=== PATIENT | female | born 1995 | race Caucasian/White ===

== ENCOUNTER → 2017-06-09 12:26 | Outpatient (CLI) | payer OTHER, SELFPAY ==
[2017-06-09 12:34] LABS: Adenovirus,PCR Not Detected (NotDetected); Bordetella Pertussis Not Detected (NotDetected); Chlamydophila Pneumoniae, PCR Not Detected (NotDetected); Coronavirus 229E Not Detected (NotDetected); Coronavirus NL63 Not Detected (NotDetected); Coronavirus OC43 Not Detected (NotDetected); Coronovirus HKU1,PCR Not Detected (NotDetected); Human Metapneumovirus Not Detected (NotDetected); Influenza A, PCR Not Detected (NotDetected); Influenza AH1, 2009 Not Detected (NotDetected); Influenza AH1, PCR Not Detected (NotDetected); Influenza AH3,PCR Not Detected (NotDetected); Influenza B, PCR Not Detected (NotDetected); Mycoplasma Pneumoniae, PCR Not Detected (NotDected); Parainfluenza 1, PCR Not Detected (NotDetected); Parainfluenza 2, PCR Not Detected (NotDetected); Parainfluenza 3, PCR Not Detected (NotDetected); Parainfluenza 4, PCR Not Detected (NotDetected); Rhinovirus/Enterovirus Not Detected (NotDetected)
--- NOTE | 2017-06-09 12:46 | XR_ITS ---
XR chest 2V Ordering Physician: Minna Mejia Patient Age: 21 years: Female HISTORY: ITS.REASON: FEVER,JOINT PAIN TECHNIQUE: PA and lateral chest COMPARISON :2 view chest 05/28/2016 FINDINGS . Lungs well expanded and clear with no significant change the prior study when technique is considered. Mild accentuation markings right infrahilar region similar to previous studies appears reflect vascular markings leading to the RLL. Heart ethan and mediastinal structures are satisfactory. IMPRESSION: Stable chest with nothing definitely acute. If symptoms progress consider follow-up.
[2017-06-09 12:50] LABS: Basophils % 0.2 % (0.1-2.0); Eosinophils # 0.2 K/mm3 (0.0-0.4); Eosinophils % 3.4 % (0.1-12.0); Hematocrit 38.7 % (37.0-47.0); Hemoglobin 12.9 g/dL (12.2-16.2); Lymphocytes # 1.3 K/mm3 (0.7-4.5); Lymphocytes % 25.6 K/mm3 (10-50); Mean Corpuscular HGB Conc 33.3 g/dL (31.8-35.4); Mean Corpuscular Hemoglobin 30.4 pg (27.0-31.2); Mean Corpuscular Volume 91.3 fl (81-99); Mean Platelet Volume 7.4 fl (7.4-10.4); Monocytes # 0.2 K/mm3 (0.1-1.0); Monocytes % 3.1 % (1.7-9.3); Neutrophils # 3.4 K/mm3 (1.8-7.8); Neutrophils % 67.8 % (37.0-80.0); Platelet Count 190 K/mm3 (142-424); Red Blood Count 4.24 M/mm3 (4.20-5.40); Red Cell Distribution Width 12.1 % (11.5-17.5)
[2017-06-09 13:35] LABS: Carbon Dioxide 27 mmol/L (21.0-32.0); Chloride 104 mmol/L (98-107); Sodium 139 mmol/L (136-145)
[2017-06-09 14:01] LABS: Respiratory Syncytial Virus Detected (NotDetected)
[2017-06-09 14:26] LABS: Alanine Aminotransferase 15 U/L (12-78); Albumin Level 4.1 gm/dL (3.4-5.0); Albumin/Globulin Ratio 1.2 (1.1-1.8); Alkaline Phosphatase 58 U/L (46-116); Aspartate Amino Transferase 20 U/L (15-37); Bilirubin,Total 0.3 mg/dL (0.2-1.0); Blood Urea Nitrogen 12 mg/dL (7-18); Calcium 8.4 mg/dL (8.5-10.1); Creatinine,Serum 0.66 mg/dL (0.55-1.02); Estimated Glomerular Filt Rate 111 ml/min (>60); GFR (African American) 134 ML/MIN (>60); Globulin 3.3 gm/dl (1.3-3.2); Glucose 109 mg/dL (74-106); Thyroid Stimulating Hormone 2.03 uIU/ml (0.358-3.740); Total Protein,Serum 7.4 gm/dL (6.4-8.2)
[2017-06-09 14:29] LABS: Erythrocyte Sedimentation Rate 16 mm/hr (0-20)
[2017-06-09 14:33] LABS: C-Reactive Protein < 0.2 mg/L (0.0-0.9)
[2017-06-10 13:37] LABS: RA Latex Turbid. <10.0 IU/mL (0.0-13.9)
== END ==
PROVIDERS: PCP Nurse Practitioner Family; Visit Provider Nurse Practitioner Family
DX: R50.9 Fever, unspecified (principal); M25.50 Pain in unspecified joint
CPT/HCPCS: 36415; 71046; 80053; 84443; 85025; 85651; 86140; 86431; 87486; 87581; 87633; 87798

== ENCOUNTER → 2017-07-15 09:44 | Outpatient (CLI) | payer OTHER, SELFPAY ==
[2017-07-15 10:07] LABS: Basophils % 0.4 % (0.1-2.0); Eosinophils # 0.1 K/mm3 (0.0-0.4); Eosinophils % 2.1 % (0.1-12.0); Hematocrit 39.9 % (37.0-47.0); Hemoglobin 13.2 g/dL (12.2-16.2); Lymphocytes # 1.7 K/mm3 (0.7-4.5); Mean Corpuscular Hemoglobin 30.2 pg (27.0-31.2); Mean Corpuscular Volume 91.4 fl (81-99); Mean Platelet Volume 8.2 fl (7.4-10.4); Monocytes # 0.2 K/mm3 (0.1-1.0); Monocytes % 4.3 % (1.7-9.3); Neutrophils # 2.1 K/mm3 (1.8-7.8); Neutrophils % 51.2 % (37.0-80.0); Platelet Count 171 K/mm3 (142-424); Red Blood Count 4.36 M/mm3 (4.20-5.40); Red Cell Distribution Width 12.7 % (11.5-17.5); White Blood Count 4.1 K/mm3 (4.8-10.8)
[2017-07-15 10:37] LABS: Alanine Aminotransferase 35 U/L (12-78); Albumin Level 4.2 gm/dL (3.4-5.0); Albumin/Globulin Ratio 1.1 (1.1-1.8); Alkaline Phosphatase 60 U/L (46-116); Anion Gap 12.9 mEq/L (5-15); Aspartate Amino Transferase 20 U/L (15-37); Bilirubin,Total 0.6 mg/dL (0.2-1.0); Blood Urea Nitrogen 12 mg/dL (7-18); Calcium 8.7 mg/dL (8.5-10.1); Carbon Dioxide 28 mmol/L (21.0-32.0); Chloride 103 mmol/L (98-107); Creatinine,Serum 0.66 mg/dL (0.55-1.02); Estimated Glomerular Filt Rate 110 ml/min (>60); GFR (African American) 133 ML/MIN (>60); Globulin 3.8 gm/dl (1.3-3.2); Glucose 89 mg/dL (74-106); Potassium 3.9 mmoL/L (3.5-5.1); Sodium 140 mmol/L (136-145); T4 (Thyroxine) 9.1 ug/dl (4.7-13.3); Thyroid Stimulating Hormone 3.23 uIU/ml (0.358-3.740)
[2017-07-15 10:41] LABS: C-Reactive Protein < 0.2 mg/L (0.0-0.9)
[2017-07-15 11:18] LABS: Erythrocyte Sedimentation Rate 14 mm/hr (0-20)
[2017-07-16 05:18] LABS: Triiodothyronine (T3) Total 186 ng/dL (71-180)
[2017-07-16 13:22] LABS: Complement C3 87 mg/dL (82-167); Thyroglobulin Level <1.0 IU/mL (0.0-0.9); Thyroid Peroxidase Antibodies 14 IU/mL (0-34)
[2017-07-17 11:52] LABS: Actin (Smooth Muscle) Antibody 10 Units (0-19); Anti-DNA (DS) Ab Qn 1 IU/mL (0-9); Antinuclear Antibodies, IFA Negative (.)
== END ==
PROVIDERS: Visit Provider Nurse Practitioner Family
DX: R50.9 Fever, unspecified (principal); R53.83 Other fatigue; R21 Rash and other nonspecific skin eruption; R53.81 Other malaise
CPT/HCPCS: 36415; 80053; 84436; 84443; 84480; 85025; 85651; 86038; 86140; 86161; 86225; 86255; 86376; 86800

== ENCOUNTER → 2017-07-24 09:45 | Outpatient (CLI) | payer OTHER, SELFPAY ==
[2017-07-25 09:16] LABS: Hep A Ab, IgM Negative (Negative); Hepatitis B Core Antibody IgM Negative (Negative); Hepatitis B Surface Antigen Negative (Negative)
[2017-07-25 19:24] LABS: HIV Screen 4th Generation wRfx Non Reactive (Non Reactive); Hepatitis C Antibody >11.0 s/co ratio (0.0-0.9)
== END ==
PROVIDERS: Visit Provider Nurse Practitioner Family
DX: R53.83 Other fatigue (principal); R63.4 Abnormal weight loss; Z87.898 Personal history of other specified conditions; Z72.51 High risk heterosexual behavior
CPT/HCPCS: 36415; 80074; 86703; G0432

== ENCOUNTER → 2017-08-25 12:35 | Outpatient (CLI) | payer OTHER, SELFPAY ==
--- NOTE | 2017-08-25 12:52 | XR_ITS ---
XR KUB CLINICAL INDICATION: Right flank pain ITS.REASON: KUB ORDERING PHYSICIAN: Minna Mejia PATIENT AGE: 22 years COMPARISON: None FINDINGS: Nonspecific nonobstructive bowel gas pattern. No obvious renal or ureteral calculi. No acute bony anomalies. IMPRESSION: Negative KUB
[2017-08-25 14:43] LABS: Alanine Aminotransferase 22 U/L (12-78); Albumin Level 4.3 gm/dL (3.4-5.0); Albumin/Globulin Ratio 1.2 (1.1-1.8); Alkaline Phosphatase 56 U/L (46-116); Aspartate Amino Transferase 21 U/L (15-37); Bilirubin,Total 0.2 mg/dL (0.2-1.0); Blood Urea Nitrogen 16 mg/dL (7-18); Calcium 9.3 mg/dL (8.5-10.1); Carbon Dioxide 26 mmol/L (21.0-32.0); Chloride 104 mmol/L (98-107); Creatinine,Serum 0.61 mg/dL (0.55-1.02); Estimated Glomerular Filt Rate 121 ml/min (>60); GFR (African American) 146 ML/MIN (>60); Globulin 3.6 gm/dl (1.3-3.2); Glucose 72 mg/dL (74-106); Sodium 140 mmol/L (136-145); Total Protein,Serum 7.9 gm/dL (6.4-8.2)
[2017-08-28 15:49] LABS: Parathyroid Hormone Intact 20 pg/mL (15-65)
== END ==
PROVIDERS: PCP Nurse Practitioner Family; Visit Provider Nurse Practitioner Family
DX: R10.9 Unspecified abdominal pain (principal); R53.83 Other fatigue
CPT/HCPCS: 36415; 74018; 80053; 82533; 83970

== ENCOUNTER → 2018-03-05 17:39 | Outpatient (CLI) | payer OTHER, SELFPAY ==
[2018-03-05 17:44] LABS: Adenovirus,PCR Not Detected (NotDetected); Bordetella Pertussis Not Detected (NotDetected); Chlamydophila Pneumoniae, PCR Not Detected (NotDetected); Coronavirus 229E Not Detected (NotDetected); Coronavirus NL63 Not Detected (NotDetected); Coronavirus OC43 Not Detected (NotDetected); Coronovirus HKU1,PCR Not Detected (NotDetected); Human Metapneumovirus Not Detected (NotDetected); Influenza A, PCR Not Detected (NotDetected); Influenza AH1, 2009 Not Detected (NotDetected); Influenza AH1, PCR Not Detected (NotDetected); Influenza AH3,PCR Not Detected (NotDetected); Influenza B, PCR Not Detected (NotDetected); Mycoplasma Pneumoniae, PCR Not Detected (NotDected); Parainfluenza 1, PCR Not Detected (NotDetected); Parainfluenza 2, PCR Not Detected (NotDetected); Parainfluenza 3, PCR Not Detected (NotDetected); Parainfluenza 4, PCR Not Detected (NotDetected); Respiratory Syncytial Virus Not Detected (NotDetected); Rhinovirus/Enterovirus Not Detected (NotDetected)
--- NOTE | 2018-03-05 18:05 | XR_ITS ---
XR chest 2V HISTORY: ITS.REASON: COUGH, WHEEZING ORDERING PHYSICIAN: Becka Amaya PATIENT AGE: 22 years COMPARISON: None FINDINGS: The cardiomediastinal silhouette and pulmonary vascularity are within normal limits. The lungs are clear without infiltrates, suspicious nodules, or pleural effusions. No acute bony abnormalities. IMPRESSION: Negative chest, no acute finding
[2018-03-05 18:08] LABS: Basophils % 0.4 % (0.1-2.0); Eosinophils # 0.2 K/mm3 (0.0-0.4); Eosinophils % 3.3 % (0.1-12.0); Hematocrit 31.1 % (37.0-47.0); Hemoglobin 10.7 g/dL (12.2-16.2); Lymphocytes % 30.7 K/mm3 (10-50); Mean Corpuscular HGB Conc 34.5 g/dL (31.8-35.4); Mean Corpuscular Hemoglobin 30.5 pg (27.0-31.2); Mean Corpuscular Volume 88.1 fl (81-99); Mean Platelet Volume 7.4 fl (7.4-10.4); Monocytes # 0.2 K/mm3 (0.1-1.0); Monocytes % 3.6 % (1.7-9.3); Platelet Count 267 K/mm3 (142-424); Red Blood Count 3.53 M/mm3 (4.20-5.40); Red Cell Distribution Width 12.9 % (11.5-17.5); White Blood Count 6.4 K/mm3 (4.8-10.8)
[2018-03-05 18:36] LABS: Anion Gap 14.5 mEq/L (5-15); Blood Urea Nitrogen 11 mg/dL (7-18); Calcium 9.4 mg/dL (8.5-10.1); Carbon Dioxide 28 mmol/L (21.0-32.0); Chloride 98 mmol/L (98-107); Creatinine,Serum 0.45 mg/dL (0.55-1.02); Estimated Glomerular Filt Rate 171 ml/min (>60); GFR (African American) 207 ML/MIN (>60); Glucose 79 mg/dL (74-106); Potassium 3.5 mmoL/L (3.5-5.1); Sodium 137 mmol/L (136-145)
== END ==
PROVIDERS: PCP Nurse Practitioner Family; Visit Provider Physician Assistant
DX: R50.9 Fever, unspecified (principal); R06.2 Wheezing; R05 Cough; Z34.90 Encounter for supervision of normal pregnancy, unspecified, unspecified trimester
CPT/HCPCS: 36415; 71046; 80048; 85025; 87486; 87581; 87633; 87798

== ENCOUNTER → 2018-04-16 08:50 | Outpatient (CLI) | payer OTHER, SELFPAY ==
[2018-04-16 08:54] LABS: Adenovirus,PCR Not Detected (NotDetected); Bordetella Pertussis Not Detected (NotDetected); Chlamydophila Pneumoniae, PCR Not Detected (NotDetected); Coronavirus 229E Not Detected (NotDetected); Coronavirus NL63 Not Detected (NotDetected); Coronavirus OC43 Not Detected (NotDetected); Coronovirus HKU1,PCR Not Detected (NotDetected); Human Metapneumovirus Not Detected (NotDetected); Influenza A, PCR Not Detected (NotDetected); Influenza AH1, 2009 Not Detected (NotDetected); Influenza AH1, PCR Not Detected (NotDetected); Influenza AH3,PCR Not Detected (NotDetected); Influenza B, PCR Not Detected (NotDetected); Mycoplasma Pneumoniae, PCR Not Detected (NotDetected); Parainfluenza 1, PCR Not Detected (NotDetected); Parainfluenza 2, PCR Not Detected (NotDetected); Parainfluenza 3, PCR Not Detected (NotDetected); Parainfluenza 4, PCR Not Detected (NotDetected); Respiratory Syncytial Virus Not Detected (NotDetected); Rhinovirus/Enterovirus Not Detected (NotDetected)
== END ==
PROVIDERS: PCP Nurse Practitioner Family; Visit Provider Nurse Practitioner Family
DX: R05 Cough (principal); R53.83 Other fatigue
CPT/HCPCS: 87486; 87581; 87633; 87798

== ENCOUNTER 2020-01-14 16:45 | Emergency (ER) | payer MEDICAID, SELFPAY ==
--- NOTE | 2020-01-14 16:38 | ECG_ITS ---
APPROVED REPORT Exam: Resting ECG HR:72 bpm ECG Measurements Heart Rate 72 AXES MS 126 P 51 QRSd 72 QRS 75 QT 412 T 40 QTc 451 <Conclusion> Normal sinus rhythm Incomplete RBBB Otherwise a Normal ECG Electronically signed by : Gurvinder Hinson, 01/16/2020 20:02:28
[2020-01-14 16:48] VITALS: BP 124/72; PULSE 84; RESP 17; TEMP 37.3; O2SAT 99; BMI 19.5
--- NOTE | 2020-01-14 16:54 | XR_ITS ---
PROCEDURE: XR CHEST PORTABLE CLINICAL HISTORY: cough COMPARISON: CR CXR CHEST(2 VIEWS-NOT PORTABLE) from 05/28/2016 CR CXR2V XR chest 2V from 06/09/2017 CR CXR2V XR chest 2V from 03/05/2018 FINDINGS: The cardiomediastinal silhouette and pulmonary vascularity are within normal limits. The lungs are clear without infiltrates, suspicious nodules, or pleural effusions. Calcified granuloma midlung No acute bony abnormalities. IMPRESSION: No acute findings. Dictated by: Félix Martin MD 01/14/2020 22:07 Félix Martin MD in [place] 01/14/2020 22:07
--- NOTE | 2020-01-14 17:07 | HMH.EDGENADL ---
ED Disposition Clinical Impression: Suspected COVID-19 virus infection Disposition: Home, Self-Care Condition on Discharge: Fair Additional Instructions: You have been evaluated for cough, congestion, sore throat. Please take Tylenol for pain and fever. Self isolate and quarantine. You will be called with any positive COVID results. Return to the emergency department if you have new or worsening chest pain, vomiting, shortness of breath, other concerns. Referrals: Provider,Referral, [Primary Care Provider] - Time of Disposition: 18:06 - Critical Care Critical Care Time: No Attestation: On 01/14/20, the high probability of a clinically significant, sudden or life threatening deterioration of the following system(s) required my full and direct attention, intervention and personal management. The time I documented below is in addition to time spent performing reported procedures but includes the following listed in this critical care notation. Medical Decision Making - Medical Records Medical records reviewed: Yes: I reviewed the patient's medical records. - Moncho Inquiry Pt receiving controlled substance: No Vital Signs: 01/14/20 16:48 01/14/20 17:42 01/14/20 18:02 Temperature 99.1 F 99.0 F Temperature Source Oral Oral Pulse Rate 95 H Pulse Rate [Right Radial] 84 64 Respiratory Rate 17 17 Blood Pressure 120/84 Blood Pressure [Right Arm] 124/72 122/77 Blood Pressure Mean [Right Arm] 89 92 Blood Pressure Source [Right Arm] Automatic Cuff Blood Pressure Position [Right Arm] Sitting 02 Sat by Pulse Oximetry 99 100 Oxygen Delivery Method Room Air Room Air Room Air Orders (Tests/Meds): ORDERS Category Date Time Status CXR --portable [XR chest portable] Stat Exams 01/14/20 16:54 Taken Covid-19 Nasal PCR Sendout Stat Lab 01/14/20 17:10 Received Medical Decision Narrative: In summary this is a 24-year-old female presenting to the emergency department with cough, congestion, sore throat, body aches. Overall presentation is most concerning for COVID-19 or other viral illness. Will obtain chest x-ray to assess for pneumonia. X-ray unremarkable. Patient counseled to take Tylenol for her symptoms. She should self quarantine. Given return precautions for new or worsening symptoms like difficulty breathing, chest pain, other concerns. General Adult HPI - General Chief complaint: Fever Stated complaint: Cp, SOB Time Seen by Provider: 01/14/20 17:00 Mode of Arrival: Ambulatory Limitations: No Limitations Description of Symptoms (Recalled from ER Triage Doc. by RN): pt states that 2 days ago she started having sore throat and now she has a cough, fever up to 102 at home, vomiting and body aches. - History of Present Illness HPI narrative: 24-year-old female presenting to the emergency department with cough, myalgias. Symptoms started yesterday as a cough that was dry and hacking. Overnight she developed diffuse myalgias in her arms, legs. She also had nausea, no vomiting. She now has a sore throat that is on both sides of the back of her throat. Pain with swallowing. No difficulty breathing. She does not have any medical problems. No known sick contacts or positive COVID exposures. She does clean houses. Is taking Tylenol for fever. - Related Data Home Medications Medication Instructions Recorded Confirmed Buprenorphine HCl/Naloxone HCl 1 each SL BID 08/25/17 04/01/18 [Suboxone 8 mg-2 mg Sl Film] No122/Iron/Folic Acid 1 each PO DAILY 04/01/18 04/01/18 [ Multi Tablet] Previous Rx's Medication Instructions Recorded bisacodyL [Dulcolax 5mg Tab] 5 mg PO PCHS PRN #6 tablet. 02/12/18 Allergies Allergy/AdvReac Type Severity Reaction Status Date / Time codeine [CODEINE] Allergy Severe Anaphylaxis Verified 04/01/18 17:46 doxycycline [DOXYCYCLINE] Allergy Severe Anaphylaxis Verified 04/01/18 17:46 hyoscyamine [From Levsin] Allergy S
[2020-01-14 17:42] VITALS: BP 122/77; PULSE 64; O2SAT 100
[2020-01-14 18:02] VITALS: BP 120/84; PULSE 95; RESP 17; TEMP 37.2; O2SAT 99
[2020-01-16 17:19] LABS: Covid-19 Nasal PCR Sendout UK Not Detected
== END 2020-01-14 18:02 | disposition home or self-care (01) ==
PROVIDERS: Emergency Provider Emergency Medicine
DX: Z20.828 Contact with and (suspected) exposure to other viral communicable diseases (principal); R50.9 Fever, unspecified; F17.210 Nicotine dependence, cigarettes, uncomplicated
CPT/HCPCS: 71045; 93005; 99283; U0003

== ENCOUNTER 2023-08-27 14:42 | Emergency (ER) | payer MEDICAID, SELFPAY ==
[2023-08-27] VITALS (10 sets, daily range): BP systolic 97–145; BP diastolic 69–95; PULSE 68–95; RESP 14–20; TEMP 36.6–37.1; O2SAT 98–100; BMI 21.2
--- NOTE | 2023-08-27 14:44 | ED_ITS ---
Discharge Plan Disposition Patient Disposition: Home, Self-Care Prescriptions Prescriptions: New nitrofurantoin monohyd/m-cryst [Macrobid] 100 mg capsule 100 mg PO BID 5 Days Qty: 10 0RF Rx Instructions: must administer with a meal/food No Action bisacodyl 5 MG tablet,delayed release (DR/EC) 5 mg PO PCHS PRN (Reason: Constipation) Qty: 6 0RF [id number] [ Multi] 1 EACH tablet 1 ea PO DAILY buprenorphine-naloxone [Suboxone] 1 EACH film 1 ea sublingual BID Referrals Follow up/Referrals: Lisa Mckeon DO [Staff Physician] - See instructions Provider,Referral, [Primary Care Provider] - See instructions Activity Restrictions/Add. Instructions Additional Instructions/Restrictions: At this time it was felt you are safe to be discharged home. If new or worsening symptoms please do not hesitate to return the emergency department. Please call and schedule an appointment with Dr. Mckeon as soon as you are able. Below is your submission to [facility], they should contact you for an appointment. Please refrain from substance abuse. Thank You! Your submission has been received! The patient will receive a call from [phone] Patient Name: Lisa Lamar Patient Location: [place], [place] ([address] [place] [address]) Clinical Impressions Clinical Impression: Seizure-like activity, Vaginal bleeding, Substance abuse, Asthma exacerbation, Asymptomatic bacteriuria Discharge ED Provider: Derik Choi General Adult HPI <MARIBELL Nicolas - Last Filed: 08/27/23 17:03> General Chief complaint: Vaginal Bleeding Stated complaint: 18 wks antepartum, overdose Time Seen by Provider: 08/27/23 14:44 History of Present Illness HPI narrative: Patient presents for evaluation of overdose and reported seizure. Patient states that she has a lifelong subs abuse problem with amphetamine however reports being sober until December and has since started abusing cocaine last week. Patient smoked methamphetamine and cocaine today at which point she reportedly had a seizure according to the bystanders that were with her. However none of those bystanders are currently present. Patient is amnestic of the events but when she awoke she took Narcan. Patient reports that the back of her head hurts but she feels sore but no other complaints including chest pain shortness of breath fever chills hemoptysis hematochezia melena nausea vomit diarrhea. Patient does endorse approximately an hour prior to presentation she started spotting along with some mucus discharge vaginally. She is having some abdominal cramping. Patient is Ab1 Related Data Home Medications Medication Instructions Recorded Confirmed buprenorphine 8 mg-naloxone 2 mg 1 ea sublingual BID PAIN 08/25/17 04/01/18 sublingual film (Suboxone) vit 122-ferrous fumarate 1 ea PO DAILY Supplement 04/01/18 04/01/18 27 mg iron-folic acid 800 mcg tablet ( Multi) Previous Rx's Medication Instructions Recorded bisacodyl 5 mg tablet,delayed 5 mg PO HS PRN Constipation ##6 02/12/18 release nitrofurantoin 100 mg PO BID 5 days #10 caps 08/27/23 monohydrate/macrocrystals 100 mg capsule (Macrobid) Allergies Allergy/AdvReac Type Severity Reaction Status Date / Time codeine [CODEINE] Allergy Severe Anaphylaxis Verified 04/01/18 17:46 doxycycline [DOXYCYCLINE] Allergy Severe Anaphylaxis Verified 04/01/18 17:46 hyoscyamine [From Levsin] Allergy Severe Joint Pain Verified 04/01/18 17:46 penicillin G [PENICILLIN G] Allergy Severe Anaphylaxis Verified 04/01/18 17:46 aspirin [ASPIRIN] Allergy Mild Rash Verified 04/01/18 17:46 <Derik Choi MD - Last Filed: 08/27/23 19:42> History of Present Illness HPI narrative: Patient presents for evaluation of overdose and reported seizure. Patient states that she has a lifelong subs abuse problem with amphetamine however reports being sober since December. Patient relapsed and smoked methamphetamine and cocaine today at which point she reportedly had a seizure according to the bystanders that were with her. However none of those bystanders are currently present. Patient is amnestic of the events but when she awoke she took Narcan. Patient reports that the back of her head hurts but she feels sore but no other complaints including chest pain shortness of breath fever chills hemoptysis hematochezia melena nausea vomit diarrhea. Patient does endorse approximately an hour prior to presentation she started spotting along with some mucus discharge vaginally. She is having some abdominal cramping. Jany Choi: Patient is a G4, P2 EGA 17.5 weeks, no previous section. Has polysubstance abuse and presents here for seizure-like activity. Patient has previous documented IUP on ultrasound in fax chart from [facility]. [facility] <MARIBELL Nicolas - Last Filed: 08/27/23 17:03> [facility] Disclaimer: The information contained in this section may have been updated after the patient was seen, as this information can be updated by other users. Social History Smoking Status: Current every day smoker tobacco type: cigarettes packs per day: 1 second hand exposure: Yes alcohol intake: never substance use type: marijuana, opiates and IV drugs current occupational status: employed Travel in the last 8 weeks: None caffeine: Yes <MARIBELL Nicolas - Last Filed: 08/27/23 17:03> ROS Obtained: Yes Systems reviewed as appropriate & no additional complaints except as documented Physical Exam <MARIBELL Nicolas - Last Filed: 08/27/23 17:03> General General appearance: alert and in no apparent distress Head Head exam: atraumatic, normocephalic, normal inspection and other (Patient is tender to palpation at the occiput but no deformities hematomas lacerations abrasions noted) Eye Eye exam: Present normal appearance, PERRL and EOMI; Absent nystagmus ENT ENT exam: Present normal exam, normal oropharynx and mucous membranes moist Neck Neck exam: Present normal inspection, full ROM and trachea midline; Absent lymphadenopathy Chest Chest inspection: Present normal inspection and symmetric chest wall rise Respiratory Respiratory exam: Present normal lung sounds bilaterally; Absent respiratory distress or accessory muscle use Cardiovascular Cardiovascular exam: Present regular rate, normal rhythm, normal heart sounds, +S1 and +S2 Abdominal Exam Abdominal exam: Present soft, tenderness (In the bilateral lower quadrants primarily towards the midline) and normal bowel sounds; Absent guarding, rebound or rigidity Extremities Exam Extremities exam: Present normal inspection and full ROM; Absent tenderness Back Exam Back exam: Present normal inspection and full ROM Neurological Exam Neurological exam: Present alert, oriented X3 and CN II-XII intact Psychiatric Psychiatric exam: Present normal affect and normal mood Skin Skin exam: Present warm, dry and normal color Medical Decision Making <MARIBELL Nicolas - Last Filed: 08/27/23 17:03> Medical Records Medical records reviewed: Yes I reviewed the patient's medical records. Moncho Inquiry Pt receiving controlled substance: No Vital Signs: 08/27/23 14:44 08/27/23 15:11 08/27/23 15:15 Temperature 98 F Temperature Source Oral Pulse Rate 88 95 H Pulse Rate [Left Radial] 91 H Respiratory Rate 16 18 20 Blood Pressure 97/70 L Blood Pressure [Right Arm] 138/88 Blood Pressure Mean [Right Arm] 104 Blood Pressure Source [Right Arm] Automatic Cuff Blood Pressure Position [Right Arm] Sitting 02 Sat by Pulse Oximetry 99 98 98 Oxygen Delivery Method Room Air Room Air 08/27/23 16:00 08/27/23 16:30 08/27/23 17:00 Temperature Temperature Source Pulse Rate 86 86 68 Pulse Rate [Left Radial] Respiratory Rate 16 16 15 Blood Pressure 116/69 115/74 126/78 Blood Pressure [Right Arm] Blood Pressure Mean [Right Arm] Blood Pressure Source [Right Arm] Blood Pressure Position [Right Arm] 02 Sat by Pulse Oximetry 100 98 98 Oxygen Delivery Method Room Air 08/27/23 17:30 08/27/23 18:00 08/27/23 18:30 Temperature Temperature Source Pulse Rate 81 69 80 Pulse Rate [Left Radial] Respiratory Rate 16 14 16 Blood Pressure 116/74 114/77 130/73 Blood Pressure [Right Arm] Blood Pressure Mean [Right Arm] Blood Pressure Source [Right Arm] Blood Pressure Position [Right Arm] 02 Sat by Pulse Oximetry 99 99 98 Oxygen Delivery Method Room Air Room Air Lab Data Lab results reviewed: Yes I reviewed the patient's lab results. Lab Results 08/27/23 15:07: WBC 7.7, RBC 4.02 L, Hgb 12.7, Hct 38.8, MCV 96.6, MCH 31.7 H, MCHC 32.8, RDW 13.0, Plt Count 303, MPV 7.4, Neut % (Auto) 83.8 H, Lymph % (Auto) 12.2, Letcher % (Auto) 2.9, Eos % (Auto) 0.8, Baso % (Auto) 0.3, Neut # (Auto) 6.5, Lymph # (Auto) 0.9, Letcher # (Auto) 0.2, Eos # (Auto) 0.1, Baso # (Auto) 0.0, Sodium 134 L, Potassium 3.4 L, Chloride 105, Carbon Dioxide 23, Anion Gap 9.4, BUN 6 L, Creatinine 0.40 L, Estimated Creat Clear 177, Estimated GFR 187, Est GFR ( Amer) 227, Glucose 108 H, Calcium 9.2, Magnesium 2.0, Total Bilirubin 0.5, AST 30, ALT 23, Alkaline Phosphatase 72, Total Protein 7.5, Albumin 4.1, Globulin 3.4 H, Albumin/Globulin Ratio 1.2, TSH 1.75, Thyroxine (T4) 15.8 H 08/27/23 15:20: Blood Type A Positive, Antibody Screen Negative 08/27/23 15:57: Lactate 0.7 08/27/23 16:19: Urine Color Yellow, Urine Appearance Clear, Urine pH 6.0, Ur Specific [place] <= 1.005, Urine Protein Negative, Urine Glucose (UA) Negative, Urine Ketones Negative, Urine Blood Trace-i, Urine Nitrate Negative, Urine Bilirubin Negative, Urine Urobilinogen 0.2, Ur Leukocyte Esterase Trace, Urine RBC Occasional, Urine WBC 3-5, Ur Squamous Epith Cells 5-10, Urine Bacteria Trace, SARS-CoV-2 (PCR) Not detected, Influenza A Untype (PCR) Not detected, Influenza Type B (PCR) Not detected 08/27/23 15:07 08/27/23 15:07 Orders (Tests/Meds): ED MEDICATIONS Discontinued Medications Generic Name Dose Route Start Last Admin Trade Name Juanq PRN Reason Stop Dose Admin Acetaminophen 1,000 mg 08/27/23 15:04 08/27/23 15:16 Acetaminophen 500mg Tab PO 08/27/23 15:05 1,000 mg ONCE ONE Administration Albuterol Sulfate 2.5 mg 08/27/23 18:57 08/27/23 19:22 Albuterol 0.083% 2.5 Mg/3 Ml Neb IH 08/27/23 18:58 2.5 mg ONCE ONE Administration Dexamethasone Sodium Phosphate 10 mg 08/27/23 18:57 08/27/23 19:18 Dexamethasone 4mg/Ml 1ml Vial IV 08/27/23 18:58 10 mg ONCE ONE Administration Lactated Ringer's 1,000 mls @ 999 mls/hr 08/27/23 16:14 08/27/23 16:16 Lactated Ringer's 1000 Ml Bag IV 08/27/23 17:14 999 mls/hr .Q1H1M ONE Administration ORDERS Category Date Time Status Type and Screen Stat BBK 08/27/23 15:[address] head/brain wo con Stat Cat Scan 08/27/23 15:03 Completed CXR --portable [XR chest portable] Stat Exams 08/27/23 18:57 Completed CBC w/Auto Diff [Complete Blood Count Auto Diff] Stat Lab 08/27/23 15:07 Completed CMP [Comprehensive Metabolic Panel] Stat Lab 08/27/23 15:07 Completed Lactic Acid Stat Lab 08/27/23 15:57 Completed Magnesium Stat Lab 08/27/23 15:07 Completed Rapid PCR Covid and Flu A/B Stat Lab 08/27/23 16:19 Completed T4 (Thyroxine) Stat Lab 08/27/23 15:07 Completed TSH [Thyroid Stimulating Hormone] Stat Lab 08/27/23 15:07 Completed Urinalysis and Microscopic Stat Lab 08/27/23 16:19 Completed Medical Decision Narrative: In summary patient is a 28-year-old female who presents to the emergency department for evaluation of unintentional drug overdose and seizure. Patient is currently hemodynamically stable upon arrival, and afebrile. Physical exam is only remarkable for generalized muscle soreness and tenderness at the occiput without visible trauma or deformity on palpation. Patient's Glascow coma score is 15. Differential diagnosis includes intracranial bleed, drug-induced seizure, threatened miscarriage, occult fracture etc. Initial workup will be conducted with hematologic labs, type and screen, CT scan of the head without contrast, urinalysis and urine drug screen. Initial interventions include Tylenol, fluid bolus. Initial workup reviewed by me shows that her hematologic labs are unremarkable and nonactionable and CT scan of the head does not show any acute processes.. <Derik Choi MD - Last Filed: 08/27/23 19:42> Vital Signs: 08/27/23 14:44 08/27/23 15:11 08/27/23 15:15 Temperature 98 F Temperature Source Oral Pulse Rate 88 95 H Pulse Rate [Left Radial] 91 H Respiratory Rate 16 18 20 Blood Pressure 97/70 L Blood Pressure [Right Arm] 138/88 Blood Pressure Mean [Right Arm] 104 Blood Pressure Source [Right Arm] Automatic Cuff Blood Pressure Position [Right Arm] Sitting 02 Sat by Pulse Oximetry 99 98 98 Oxygen Delivery Method Room Air Room Air 08/27/23 16:00 08/27/23 16:30 08/27/23 17:00 Temperature Temperature Source Pulse Rate 86 86 68 Pulse Rate [Left Radial] Respiratory Rate 16 16 15 Blood Pressure 116/69 115/74 126/78 Blood Pressure [Right Arm] Blood Pressure Mean [Right Arm] Blood Pressure Source [Right Arm] Blood Pressure Position [Right Arm] 02 Sat by Pulse Oximetry 100 98 98 Oxygen Delivery Method Room Air 08/27/23 17:30 08/27/23 18:00 08/27/23 18:30 Temperature Temperature Source Pulse Rate 81 69 80 Pulse Rate [Left Radial] Respiratory Rate 16 14 16 Blood Pressure 116/74 114/77 130/73 Blood Pressure [Right Arm] Blood Pressure Mean [Right Arm] Blood Pressure Source [Right Arm] Blood Pressure Position [Right Arm] 02 Sat by Pulse Oximetry 99 99 98 Oxygen Delivery Method Room Air Room Air Lab Data Lab Results 08/27/23 15:07: WBC 7.7, RBC 4.02 L, Hgb 12.7, Hct 38.8, MCV 96.6, MCH 31.7 H, MCHC 32.8, RDW 13.0, Plt Count 303, MPV 7.4, Neut % (Auto) 83.8 H, Lymph % (Auto) 12.2, Letcher % (Auto) 2.9, Eos % (Auto) 0.8, Baso % (Auto) 0.3, Neut # (Auto) 6.5, Lymph # (Auto) 0.9, [place]cher # (Auto) 0.2, Eos # (Auto) 0.1, Baso # (Auto) 0.0, Sodium 134 L, Potassium 3.4 L, Chloride 105, Carbon Dioxide 23, Anion Gap 9.4, BUN 6 L, Creatinine 0.40 L, Estimated Creat Clear 177, Estimated GFR 187, Est GFR ( Amer) 227, Glucose 108 H, Calcium 9.2, Magnesium 2.0, Total Bilirubin 0.5, AST 30, ALT 23, Alkaline Phosphatase 72, Total Protein 7.5, Albumin 4.1, Globulin 3.4 H, Albumin/Globulin Ratio 1.2, TSH 1.75, Thyroxine (T4) 15.8 H 08/27/23 15:20: Blood Type A Positive, Antibody Screen Negative 08/27/23 15:57: Lactate 0.7 08/27/23 16:19: Urine Color Yellow, Urine Appearance Clear, Urine pH 6.0, Ur Specific [place] <= 1.005, Urine Protein Negative, Urine Glucose (UA) Negative, Urine Ketones Negative, Urine Blood Trace-i, Urine Nitrate Negative, Urine Bilirubin Negative, Urine Urobilinogen 0.2, Ur Leukocyte Esterase Trace, Urine RBC Occasional, Urine WBC 3-5, Ur Squamous Epith Cells 5-10, Urine Bacteria Trace, SARS-CoV-2 (PCR) Not detected, Influenza A Untype (PCR) Not detected, Influenza Type B (PCR) Not detected Orders (Tests/Meds): ED MEDICATIONS Discontinued Medications Generic Name Dose Route Start Last Admin Trade Name Freq PRN Reason Stop Dose Admin Acetaminophen 1,000 mg 08/27/23 15:04 08/27/23 15:16 Acetaminophen 500mg Tab PO 08/27/23 15:05 1,000 mg ONCE ONE Administration Albuterol Sulfate 2.5 mg 08/27/23 18:57 08/27/23 19:22 Albuterol 0.083% 2.5 Mg/3 Ml Neb IH 08/27/23 18:58 2.5 mg ONCE ONE Administration Dexamethasone Sodium Phosphate 10 mg 08/27/23 18:57 08/27/23 19:18 Dexamethasone 4mg/Ml 1ml Vial IV 08/27/23 18:58 10 mg ONCE ONE Administration Lactated Ringer's 1,000 mls @ 999 mls/hr 08/27/23 16:14 08/27/23 16:16 Lactated Ringer's 1000 Ml Bag IV 08/27/23 17:14 999 mls/hr .Q1H1M ONE Administration ORDERS Category Date Time Status Type and Screen Stat BBK 08/27/23 15:[address] head/brain wo con Stat Cat Scan 08/27/23 15:03 Completed CXR --portable [XR chest portable] Stat Exams 08/27/23 18:57 Completed CBC w/Auto Diff [Complete Blood Count Auto Diff] Stat Lab 08/27/23 15:07 Completed CMP [Comprehensive Metabolic Panel] Stat Lab 08/27/23 15:07 Completed Lactic Acid Stat Lab 08/27/23 15:57 Completed Magnesium Stat Lab 08/27/23 15:07 Completed Rapid PCR Covid and Flu A/B Stat Lab 08/27/23 16:19 Completed T4 (Thyroxine) Stat Lab 08/27/23 15:07 Completed TSH [Thyroid Stimulating Hormone] Stat Lab 08/27/23 15:07 Completed Urinalysis and Microscopic Stat Lab 08/27/23 16:19 Completed Medical Decision Narrative: In summary patient is a 28-year-old female who presents to the emergency department for evaluation of unintentional drug overdose and seizure. Patient is currently hemodynamically stable upon arrival, and afebrile. Physical exam is only remarkable for generalized muscle soreness and tenderness at the occiput without visible trauma or deformity on palpation. Patient's Glascow coma score is 15. Differential diagnosis includes intracranial bleed, drug-induced seizure, threatened miscarriage, occult fracture etc. Initial workup will be conducted with hematologic labs, type and screen, CT scan of the head without contrast, urinalysis and urine drug screen. Initial interventions include Tylenol, fluid bolus. Initial workup reviewed by me shows that her hematologic labs are unremarkable and nonactionable and CT scan of the head does not show any acute processes.. Derik Choi: Workup reviewed by me, hematologic labs are nonactionable, slightly elevated free T4, urinalysis shows asymptomatic bacteriuria, viral swab negative. Upon repeat evaluation patient had significant cough which was not noticed for, auscultation shows wheezing in the right bases, she does have a history of asthma. Differential includes pneumonia for which chest x-ray will be obtained. Dexamethasone and albuterol will be administered. Very informally interpreted by me, no acute lobar opacities or large pneumothorax. Upon repeat evaluation patient was resting comfortably in bed, no tachypnea. Given this patient is appropriate for discharge at this time will be discharged with a course of antibiotics. Patient is given lobsterman steroids so no additional steroids are required and has metered-dose inhaler at home. Patient was referred to [facility] and will call and schedule appoint with Dr. Mckeon for outpatient evaluation. Critical Care <MARIBELL Nicolas - Last Filed: 08/27/23 17:03> Critical Care Time Critical Care Time: No
--- NOTE | 2023-08-27 14:48 | PC.NURSE ---
Armando Boone PA-C at bedside
--- NOTE | 2023-08-27 14:52 | ECG_ITS ---
APPROVED REPORT Exam: Resting ECG HR:84 bpm ECG Measurements Heart Rate [address] 125 P 61 QRSd 76 QRS 62 QT 378 T 66 QTc 419 Conclusion SINUS RHYTHM POSSIBLE LEFT ATRIAL ENLARGEMENT [-0.1mV P-WAVE IN V1/V2] BORDERLINE ECG Electronically signed by : JUAN JOSE MCKENZIE, 08/27/2023 23:10:55
--- NOTE | 2023-08-27 15:03 | CT_ITS ---
FINAL REPORT CLINICAL HISTORY: Seizure FINDINGS: Axial images of the head were obtained without contrast. Coronal reformatted images were also obtained.This study was performed with techniques to keep radiation doses as low as reasonably achievable (ALARA). Individualized dose reduction techniques using automated exposure control or adjustment of mA and/or kV according to the patient's size were employed. There is no evidence of intracranial hemorrhage. There is a 5 mm high attenuation mass in the anterior superior 3rd ventricle consistent with a colloid cyst. There is no evidence of hydrocephalus. The ventricular size is within normal limits. There is no evidence of shift of the midline structures. No abnormal extra axial fluid collection is identified. No skull abnormality is seen on the bone window images. IMPRESSION: No acute intracranial abnormality. 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 No evidence of hydrocephalus. Reviewed, Interpreted and Dictated by Bentley Valentin III, MD Transcribed by Nerissa Rosas Authenticated and [facility]
[2023-08-27] MEDS: ACETAMINOPHEN 500MG TAB 1000 MG PO (15:16)
--- NOTE | 2023-08-27 15:16 | PC.NURSE ---
Heart Tones 155-159 on doppler.
[2023-08-27 15:27] LABS: Basophils % 0.3 % (0.1-2.0); Eosinophils # 0.1 K/mm3 (0.0-0.4); Eosinophils % 0.8 % (0.1-12.0); Hematocrit 38.8 % (37.0-47.0); Hemoglobin 12.7 g/dL (12.2-16.2); Lymphocytes # 0.9 K/mm3 (0.7-4.5); Lymphocytes % 12.2 % (10-50); Mean Corpuscular HGB Conc 32.8 g/dL (31.8-35.4); Mean Corpuscular Hemoglobin 31.7 pg (27.0-31.2); Mean Corpuscular Volume 96.6 fl (81-99); Mean Platelet Volume 7.4 fl (7.4-10.4); Monocytes # 0.2 K/mm3 (0.1-1.0); Monocytes % 2.9 % (1.7-9.3); Neutrophils # 6.5 K/mm3 (1.8-7.8); Neutrophils % 83.8 % (37.0-80.0); Platelet Count 303 K/mm3 (142-424); Red Blood Count 4.02 M/mm3 (4.20-5.40); White Blood Count 7.7 K/mm3 (4.8-10.8)
[2023-08-27 15:28] LABS: Chloride 105 mmol/L (98-107); Sodium 134 mmol/L (136-145)
[2023-08-27 15:29] LABS: Potassium 3.4 mmoL/L (3.5-5.1)
[2023-08-27 15:31] LABS: Alanine Aminotransferase 23 U/L (12-78); Alkaline Phosphatase 72 U/L (38-126); Anion Gap 9.4 mEq/L (5-15); Aspartate Amino Transferase 30 U/L (14-36); Bilirubin,Total 0.5 mg/dl (0.2-1.3); Blood Urea Nitrogen 6 mg/dl (7-17); Carbon Dioxide 23 mmol/L (22.0-30.0); Creatinine Clearance Estimated 177 mL/min (50-200); Estimated Glomerular Filt Rate 187 ml/min (>60); GFR (African American) 227 ML/MIN (>60)
[2023-08-27 15:32] LABS: Albumin Level 4.1 g/dl (3.5-5.0); Albumin/Globulin Ratio 1.2 (1.1-1.8); Calcium 9.2 mg/dl (8.4-10.2); Globulin 3.4 g/dL (1.3-3.2); Glucose 108 mg/dl (74-100); Total Protein,Serum 7.5 g/dl (6.3-8.2)
[2023-08-27 15:49] LABS: T4 (Thyroxine) 15.8 ug/dl (5.53-11.0)
[2023-08-27 16:02] LABS: Thyroid Stimulating Hormone 1.75 uIU/mL (0.465-4.68)
[2023-08-27 16:16] LABS: Lactic Acid 0.7 mmol/L (0.7-2.1)
[2023-08-27] MEDS: LACTATED RINGERS 1000ML 1,000 ML 999 ML IV (16:16)
[2023-08-27 16:35] LABS: Coronavirus 19, PCR Not Detected (NotDetected); Influenza A, PCR Not Detected (NotDetected); Influenza B, PCR Not Detected (NotDetected); Microscopic, Urine URINE MICROSCOPIC (MICROSCOPIC)
[2023-08-27 16:47] LABS: Appearance,Urine CLEAR (Clear); Bilirubin,Urine Negative (Negative); Blood, Urine TRACE-I (Negative); Color,Urine YELLOW (Yellow); Glucose,Urine (UA) Negative (Negative); Ketones,Urine Negative (Negative); Leukocyte Esterase,Urine TRACE (Negative); Nitrate,Urine Negative (Negative); Protein,Urine Negative (Negative); Specific Gravity, Urine <= 1.005 (1.005-1.030); Urobilinogen,Urine 0.2 EU/dl (0.2)
[2023-08-27 16:59] LABS: Bacteria,Urine Trace /lpf; RBC,Urine Occasional #/hpf (0-3)
--- NOTE | 2023-08-27 18:57 | XR_ITS ---
PROCEDURE INFORMATION: Exam: XR Chest Exam date and time: 08/27/2023 6:59 PM Age: 28 years old Clinical indication: Cough; Additional info: R wheezing, cough TECHNIQUE: Imaging protocol: Radiologic exam of the chest. Views: 1 view. COMPARISON: CR XR CHEST PORTABLE 01/14/2020 5:02 PM FINDINGS: Lungs: Unremarkable. No consolidation. Pleural spaces: Unremarkable. No pleural effusion. No pneumothorax. Heart/Mediastinum: Unremarkable. No cardiomegaly. Bones/joints: Unremarkable. IMPRESSION: Stable chest x-ray with no acute disease.
--- NOTE | 2023-08-27 19:08 | PC.NURSE ---
respiratory aware of breathing tx order
[2023-08-27] MEDS: DEXAMETHASONE 4MG/ML 1ML VIAL 10 MG IV (19:18)
[2023-08-27] MEDS: ALBUTEROL 0.083% 2.5 MG/3 ML NEB IH (19:22)
== END 2023-08-27 20:00 | disposition home or self-care (01) ==
PROVIDERS: Physician Assistant; Emergency Provider Emergency Medicine
DX: O26.892 Other specified pregnancy related conditions, second trimester; R56.9 Unspecified convulsions; F19.10 Other psychoactive substance abuse, uncomplicated; N93.9 Abnormal uterine and vaginal bleeding, unspecified; R82.71 Bacteriuria; J45.901 Unspecified asthma with (acute) exacerbation; O99.332 Smoking (tobacco) complicating pregnancy, second trimester; F17.210 Nicotine dependence, cigarettes, uncomplicated; Z3A.17 17 weeks gestation of pregnancy
CPT/HCPCS: 36415; 70450; 71045; 80053; 81001; 83605; 83735; 84436; 84443; 85025; 86850; 87636; 93005; 96361; 96374; 99285

== ENCOUNTER 2023-10-03 17:50 | Outpatient (CLI) | payer MEDICAID, SELFPAY ==
[2023-10-03 18:30] VITALS: BMI 22.1
[2023-10-03 18:33] VITALS: BMI 22.1
[2023-10-03 18:44] LABS: Microscopic, Urine URINE MICROSCOPIC (MICROSCOPIC)
[2023-10-03 18:54] LABS: Appearance,Urine CLEAR (Clear); Bilirubin,Urine Negative (Negative); Blood, Urine Negative (Negative); Color,Urine YELLOW (Yellow); Glucose,Urine (UA) Negative (Negative); Ketones,Urine Negative (Negative); Leukocyte Esterase,Urine Negative (Negative); Nitrate,Urine Negative (Negative); Protein,Urine Negative (Negative); Specific Gravity, Urine 1.025 (1.005-1.030); Urobilinogen,Urine 0.2 EU/dl (0.2)
[2023-10-03 19:06] LABS: Barbiturates Screen,Urine Negative ng/ml (<200)
[2023-10-03 19:07] LABS: Amphetamine/Metha Screen,Urine Positive ng/ml (<1000); Benzodiazepines Screen,Urine Negative ng/ml (<200)
[2023-10-03 19:08] LABS: Cannabinoid Screen,Urine Negative ng/ml (<50)
[2023-10-03 19:09] LABS: Cocaine Screen,Urine Positive ng/ml (<300); Methadone Screen,Urine Negative ng/ml (<300)
[2023-10-03 19:10] LABS: Opiate Screen,Urine Negative ng/ml (<300)
[2023-10-03 19:11] LABS: Phencyclidine Screen,Urine Negative ng/ml (<25)
[2023-10-03 19:35] LABS: Squamous Epithelial Cell,Urine 20-50 #/hpf (0-5); Yeast,Urine 2+ /lpf
--- NOTE | 2023-10-03 19:44 | US_ITS ---
PROCEDURE INFORMATION: Exam: US After First Trimester, Transabdominal Exam date and time: 10/03/2023 8:14 PM Age: 28 years old Clinical indication: Lmp or gestational age (in weeks): 22 weeks 5 days; Other: Decrease movement; ; Additional info: well being, decreased movement, drug use LABS AND CLINICAL REPORTS: Gestational age (Established): 22 w 5 d Estimated due date (Established): 02/01/2024 TECHNIQUE: Imaging protocol: Real-time transabdominal obstetrical ultrasound of the maternal pelvis and a second or third trimester with image documentation. COMPARISON: Let's Jock[facility]Maest[facility] CT abdomen pelvis wo con 08/25/2017 7:36 PM FINDINGS: Gestation: Jc living intrauterine gestation. heart rate: 143 bpm. presentation and position: Cephalic presentation. Placenta: Unremarkable. No subchorionic bleed. Placenta is anterior. Amniotic fluid (Qualitative): Amniotic fluid is normal for gestational age. BIOMETRY: Gestational age (AUA): 22 w 5 d Estimated due date (AUA): 02/01/2024 Estimated weight: 505.1 g. EFW by AC, BPD, FL, HC, [place] 1985 Biparietal diameter (BPD): 5.52 cm. EGA (BPD) is 22 w 6 d. 50 % percentile Head circumference (HC): 20.43 cm. EGA (HC) is 22 w 4 d. 30 % percentile Abdominal circumference (AC): 17.26 cm. EGA (AC) is 22 w 1 d. 26 % percentile Femur length (FL): 3.94 cm. EGA (FL) is 22 w 5 d. 38 % percentile HC/AC: 1.18 FL/BPD: 0.71 FL/AC: 0.23 MATERNAL: Uterus: Unremarkable. Cervix: Cervical length measures 3.21 cm. Intraperitoneal space: No intraperitoneal free fluid. IMPRESSION: Jc intrauterine living gestation with estimated gestational age based on today's ultrasound at 22 weeks 5 days.
[2023-10-03 21:05] LABS: Chloride 106 mmol/L (98-107); Potassium 4.8 mmoL/L (3.5-5.1); Sodium 134 mmol/L (136-145)
[2023-10-03 21:08] LABS: Alanine Aminotransferase 22 U/L (12-78); Albumin Level 4.1 g/dl (3.5-5.0); Alkaline Phosphatase 51 U/L (38-126); Anion Gap 11.8 mEq/L (5-15); Aspartate Amino Transferase 57 U/L (14-36); Blood Urea Nitrogen 14 mg/dl (7-17); Calcium 9.3 mg/dl (8.4-10.2); Carbon Dioxide 21 mmol/L (22.0-30.0); Creatinine Clearance Estimated 184 mL/min (50-200); Estimated Glomerular Filt Rate 187 ml/min (>60); GFR (African American) 227 ML/MIN (>60); Glucose 83 mg/dl (74-100); Total Protein,Serum 8.1 g/dl (6.3-8.2)
[2023-10-03 21:09] LABS: Magnesium 1.7 mg/dl (1.6-2.3)
== END 2023-10-03 22:00 | disposition home or self-care (01) ==
LOC: OBOUT 17:52 → OB 17:52 → OBOUT 17:53 → OB 18:16
PROVIDERS: Visit Provider Obstetrics & Gynecology
DX: O26.892 Other specified pregnancy related conditions, second trimester (principal); Z3A.22 22 weeks gestation of pregnancy; R42 Dizziness and giddiness; R11.0 Nausea
CPT/HCPCS: 76805; 80053; 80307; 81001; 83735; G0463

== ENCOUNTER 2024-11-01 07:08 | Emergency (ER) | payer MEDICAID, SELFPAY ==
[2024-11-01] VITALS (7 sets, daily range): BP systolic 143–157; BP diastolic 93–108; PULSE 75–88; RESP 16–18; TEMP 36.8–36.9; O2SAT 98–100; BMI 22.8
--- NOTE | 2024-11-01 07:15 | PC.NURSE ---
dr samaniego at bedside
--- NOTE | 2024-11-01 07:23 | ED_ITS ---
Discharge Plan Disposition Patient Disposition: Left Against Medical Advice Prescriptions Prescriptions: New cefdinir 300 mg capsule 300 mg PO BID 10 Days Qty: 20 0RF No Action Vraylar 1.5 mg capsule PO hydroxyzine HCl 50 mg tablet 50 mg PO HS [id number] [ Multi] 1 EACH tablet 1 ea PO DAILY Referrals Follow up/Referrals: Provider,Referral, MD [Primary Care Provider, Medical] - See instructions Activity Restrictions/Add. Instructions Additional Instructions/Restrictions: As discussed it is possible that you have an infection of your tricuspid heart valve today (endocarditis) in the setting of your IV drug use. This is a very serious condition that will likely kill you if it goes untreated. Please return to the emergency department at anytime you are willing to complete your workup as soon as you can. Otherwise take your antibiotics as prescribed but they will not work as good as IV antibiotics and will not fix the problem if you do have endocarditis. Clinical Impressions Clinical Impression: Skin infection, Echocardiogram abnormal, History of intravenous drug use Instructions Patient Instructions: DI for Skin Abscess Print Language Print Language: Lithuanian Discharge ED Provider: Derik Choi General Adult HPI General Chief complaint: Skin/Abscess/Foreign Body Stated complaint: bumps all over face, swelling l side of face pain Time Seen by Provider: 11/01/24 07:10 History of Present Illness HPI narrative: Patient is a 29-year-old female with past medical history of intravenous methamphetamine use who presents emergency department for evaluation of sores on her body. Onset was acute over the last 4 days. This precipitated 1 day after her last use. She is going to rehabilitation on the eighth of this coming month. She has had this happen multiple times before and always responds to clindamycin. No shortness of breath or chest pain reported. Due to the sores on her arms of face she presents here for continued evaluation. No other acute complaints at this time. Please note that above description of symptoms, in this electronic medical record under categorization of recalled from ER triage doctor by RN are reflective of an initial nursing assessment, however, is not reflective of my full history and physical exam that was personally taken and clarified. Consequentially, this preceding description of symptoms, which may include the patient's categorized chief complaint in the EMR, do not reflect my personal clinical impression, and the ultimate description of history of present illness and patient stated complaints should be deferred to this section of the note. Unless stated otherwise or congruent with this section of the note, additional signs, symptoms, or incongruence should be interpreted as inaccurate with my clinical impression. Related Data Home Medications ?Medication ?Instructions ?Recorded ?Confirmed vit 122-ferrous fumarate 1 ea PO DAILY Supple ment 04/01/18 11/04/23 27 mg iron-folic acid 800 mcg tablet ( Multi) cariprazine 1.5 mg capsule mg PO 11/04/23 11/04/23 (Vraylar) hydroxyzine HCl 50 mg tablet 50 mg PO HS 11/04/2310/17 Previous Rx's ?Medication ?Instructions ?Recorded cefdinir 300 mg capsule 300 mg PO BID possible 11/01 endocarditis 10 days #20 caps Allergies Allergy/AdvReac Type Severity Reaction Status Date / Time codeine (CODEINE) Allergy Severe Anaphylaxis Verified 11/04/23 11:23 doxycycline (DOXYCYCLINE) Allergy Severe Anaphylaxis Verified 11/04/23 11:23 hyoscyamine (From Levsin) Allergy Severe Joint Pain Verified 11/04/23 11:23 penicillin G (PENICILLIN G) Allergy Severe Anaphylaxis Verified 11/04/23 11:23 aspirin (ASPIRIN) Allergy Mild Rash Verified 11/04/23 11:23 [facility] Disclaimer: The information contained in this section may have been updated after the patient was seen, as this information can be updated by other users. Medical History Asthma Right bundle branch block Surgical History History of appendectomy Family History Sister Cancer Ovarian Grandmother Cancer OVARIAN Other Diabetes Hypertension Social History Smoking Status: Current every day smoker tobacco type: cigarettes packs per day: 1 smoking status stop date: 09/29/2023 second hand exposure: Yes alcohol intake: never substance use type: marijuana, crack/cocaine, opiates, IV drugs and methamphetamine current occupational status: other Travel in the last 8 weeks?: None caffeine: Yes Have you lived/traveled outside [place] in past 30 days?: No Contact w/someone who lives/traveled outside US past 30 days?: No Exposure to someone with infectious disease in past 14 days?: No Do you have a fever (greater than 100.4 F or 38 C)?: No Have you tested positive for COVID-19?: No Exposed to someone with COVID-19 in past 14 days?: No Do you have a sore throat?: No Do you have a cough?: No Do you have any weakness?: No Do you have any diarrhea?: No Are you experiencing any unusual bleeding?: No Do you have any muscle aches/pain?: No Do you have any abdominal pain?: No Are you experiencing loss of taste or smell?: No Other Medical History Have you received the Flu Vaccine for this season: No Have you received the Pneumonia Vaccine: No ROS Obtained: Yes Systems reviewed as appropriate & no additional complaints except as documented Physical Exam General General appearance: alert and in no apparent distress Head Head exam: atraumatic and normocephalic Eye Eye exam: Present PERRL and EOMI ENT ENT exam: Present normal oropharynx and mucous membranes moist Neck Neck exam: Present normal inspection Chest Chest inspection: Present normal inspection and symmetric chest wall rise Respiratory Respiratory exam: Present normal lung sounds bilaterally; Absent respiratory distress Cardiovascular Cardiovascular exam: Present regular rate and normal rhythm Abdominal Exam Abdominal exam: Present soft; Absent tenderness Extremities Exam Extremities exam: Present normal inspection Neurological Exam Neurological exam: Present alert; Absent motor sensory deficit Psychiatric Psychiatric exam: Present normal affect Skin Skin exam: Present warm, dry and other (Scattered circular sores over the face, bilateral arms. No overt fluctuance. Most of them are crusted. No oral involvement. No involvement of the palms.) Medical Decision Making Medical Records Screening: Per USPSTF and CDC recommendations, given the prevalence of disease in our region, it is our hospital?s policy to screen for HIV and viral Hepatitis for all patients aged 18 and over and those with ongoing risk factors. Moncho Inquiry Pt receiving controlled substance: No Vital Signs: 11/01/24 07:12 Temperature 98.3 F Temperature Source Oral Pulse Rate [Radial] 88 Respiratory Rate 18 Blood Pressure [Right Arm] 143/99 H Blood Pressure Mean [Right Arm] 113 Blood Pressure Source [Right Arm] Automatic Cuff Blood Pressure Position [Right Arm] Sitting 02 Sat by Pulse Oximetry 100 Oxygen Delivery Method Room Air Lab Data Lab Results 11/01/24 07:48: WBC 8.8, RBC 4.36, Hgb 13.2, Hct 38.6, MCV 88.5, MCH 30.3, MCHC 34.2, RDW 12.4, Plt Count 291, MPV 9.4, Neut % (Auto) 79.1, Lymph % (Auto) 16.3, [place] % (Auto) 3.9, Eos % (Auto) 0.3, Baso % (Auto) 0.2, Neut # (Auto) 6.9, Lymph # (Auto) 1.4, [place] # (Auto) 0.3, Eos # (Auto) 0.0, Baso # (Auto) 0.0, Sodium 138, Potassium 4.4, Chloride 104, Carbon Dioxide 25, Anion Gap 13.4, BUN 14, Creatinine 0.60, Estimated Creat Clear 122, Estimated GFR 117, Est GFR ( Amer) 141, Glucose 94, Calcium 9.3, Total Bilirubin 1.6 H, AST 64 H, ALT 29, Alkaline Phosphatase 39, Total Protein 9.6 H, Albumin 5.4 H, Globulin 4.2 H, Albumin/Globulin Ratio 1.3, HCV Ab CAROLYN w/Rflx PCR Qn Reactive, HIV Ag/Ab Combo Qual Negative 11/01/24 07:48 11/01/24 07:48 Orders (Tests/Meds): ED MEDICATIONS Generic Name Dose Route Start Last Admin Trade Name Freq PRN Reason Stop Dose Admin Ceftriaxone Sodium 2 gm/ 100 mls @ 200 mls/hr 11/01/24 09:15 Sodium Chloride IV 11/11/24 09:14 Q24H HARSHAD Discontinued Medications Generic Name Dose Route Start Last Admin Trade Name Freq PRN Reason Stop Dose Admin Clindamycin HCl 450 mg 11/01/24 07:21 11/01/24 09:00 Clindamycin 150mg Capsule PO 11/01/24 07:22 450 mg ONCE ONE Administration Dalbavancin 1,500 mg/ Dextrose 250 mls @ 500 mls/hr 11/01/24 09:07 IV 11/01/24 09:08 ONCE ONE ORDERS Category Date Time Status Consult Certified Wellness Program Manager [CONS] Routine Cons 11/01/24 09:15 Active POCUS Point of Care (ER Only) Stat Exams 11/01/24 07:21 Ordered CBC w/Auto Diff [Complete Blood Count Auto Diff] Stat Lab 11/01/24 07:48 Completed CMP [Comprehensive Metabolic Panel] Stat Lab 11/01/24 07:48 Completed CRP [C-Reactive Protein] Stat Lab 11/01/24 07:48 Received HCG,Quantitative Stat Lab 11/01/24 07:48 Received HCV RNA PCR, Quant Stat Lab 11/01/24 07:48 Received HIV Combo Stat Lab 11/01/24 07:48 Completed Hepatitis C Ab Qual. W/ RFX Stat Lab 11/01/24 07:48 Completed Blood Culture Stat Micro 11/01/24 09:02 Received CA echo doppler complete Stat Y 11/01/24 07:26 Completed Medical Decision Narrative: In summary patient is a 29-year-old female past medical history described above presents emergency department for evaluation of sores in setting of IV drug use. Patient is hemodynamically stable and nontoxic-appearing upon arrival, afebrile. Given that she has had multiple episodes of this before that respond to antibiotics differential includes reaction to adulterants and injectable drugs, ecthyma, diffuse impetigo, among others. Patient does not have any shortness of breath, chest pain, or pitting edema that would suggest endocarditis however out of an abundance of caution basic labs, echo, and 3 sets of blood cultures will be obtained. Initial interventions include clindamycin. Initial workup reviewed by me, hematologic labs are nonactionable no significant leukocytosis no transfusable anemia no ANDREW or critical electrolyte abnormality. Echocardiography discussed with cardiology reading physician Dr. Westfall there is a questionable echodensity on her tricuspid valve given history recommends inpatient LILLY and empiric therapy at this time. I agree with this given that hematologic labs can be not indicative of true emergent process in the setting of possible endocarditis. I discussed this with the patient at length, she does not wish to stay for this. Given this she has tolerated cefdinir before so 2 g of ceftriaxone will be given as well as dalbavancin for empiric treatment of presumed endocarditis. Patient understands that this medication regimen is suboptimal and that inpatient management is warranted, she is able to understand her decision appreciate her decision and is able to reason through her decision making express choice therefore have capacity patient will sign out against medical vice and was instructed to return the emergency department at any time she wishes to continue this workup. Patient will be discharged with a course of cefdinir and dalbavancin should be active in her bloodstream for the next week which is better than nothing. Critical Care Critical Care Time Critical Care Time: No
--- NOTE | 2024-11-01 07:26 | CA_ITS ---
APPROVED REPORT EXAM: Comprehensive 2D, Doppler, and color-flow Echocardiogram Physical Therapy Assistant Instructor: Vida Callahan RVT Ht: 5 ft 2 in Wt: 125lbs BSA: 1.57 BP: 143/99 mmHg Indications: IV drug use disorder, rash, evaluation for endocarditis 2D Dimensions LA Volume 31.50 mL LA Volume Index 20.06 mL/m2 (M/F) 16-34 M-Mode Dimensions RVDd 2.50 cm (0.9-2.6) LA Diam 2.81 cm (1.9-4.0) LVDd 4.00 cm (3.5-5.7) LVDs 2.88 cm (3.5-5.7) IVSd 0.94 cm (0.6-1.1) PWd 0.53 cm (0.6-1.1) EF (Teich) 54.70% FS 28.00% EDV (Teich) 70.00 mL TAPSE 2.26 (<1.7) ESV (Teich) 31.70 mL LV Diastology E Decel Time 150 (160-240 msec) E/A Ratio 1.3 Aortic Valve LINA Index 2.74 cm2/m2 AoV Peak Timi. 121.0 (50-130 cm/s) AO Peak GR. 5.90 mmHg AO Mean GR. 3.40 (<5 mmHg) AO VTI 22.5 (18-25 cm) LINA (VTI) 4.39 (2.5-4.5 cm2) Mitral Valve MV E Max Timi. 89.0 (40-130 cm/s) MV A Velocity 67.0 (40-130 cm/s) E/A Ratio 1.33 MV PHT 44.0 ms Pulmonary Valve PV Peak Velocity 83.0 (50-150 cm/s) Tricuspid Valve TR P. Velocity 172.00 cm/s RAP Estimate 10.00 mmHg RVSP 21.90 mmHg Left Ventricle The left ventricle is normal size. The left ventricular systolic function is normal. The left ventricular ejection fraction is within the normal range. There is normal left ventricular wall thickness. There is normal LV segmental wall motion. The left ventricular diastolic function is normal. LVEF is 55%. Right Ventricle The right ventricle is normal size. The right ventricular systolic function is normal. Atria The left atrium size is normal. The right atrium size is normal. There is no Doppler evidence of interatrial shunt. Aortic Valve The aortic valve opens well. There is no aortic valvular stenosis. No aortic regurgitation is present. Mitral Valve The mitral valve is normal in structure. No evidence of mitral valve stenosis. Trace mitral regurgitation. Tricuspid Valve The tricuspid valve leaflets are thin and pliable. There is a suspected, small sized, echodensity in the vicinity of the tricuspid valve. It is indeterminate whether this is a structural valve tricuspid apparatus vs. echodensity due to vegetation. Pulmonic Valve The pulmonary valve is normal in structure. Trace pulmonic regurgitation. Great Vessels The aortic root is normal in size. IVC is normal in size and collapses >50% with inspiration. Pericardium There is no pericardial effusion. Other Information Study Quality: Fair Conclusion Normal biventricular systolic function. No significant valvular stenosis or regurgitation. Suspected, small sized, echodensity in the vicinity of the tricuspid valve. It is indeterminate whether this is a structural valve tricuspid apparatus vs. echodensity due to vegetation. In the setting of clinical symptoms, history of IV drug use disorder, and suspected tricuspid valve echodensity, further evaluation with LILLY is suggested. Electronically signed by : Samina Westfall MD 11/01/2024 11:44:00
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
--- NOTE | 2024-11-01 07:31 | PC.NURSE ---
Called for and Echo on this pt and they said they would be on down
--- NOTE | 2024-11-01 07:48 | PC.NURSE ---
echo at bedside
--- NOTE | 2024-11-01 07:53 | PC.NURSE ---
unable to get IV at this time, ultrasound used to obtain blood and blood cultures.
[2024-11-01 08:00] LABS: Basophils % 0.2 % (0.1-2.0); Eosinophils % 0.3 % (0.1-12.0); Hematocrit 38.6 % (37.0-47.0); Hemoglobin 13.2 g/dL (12.2-16.2); Immature Granulocytes # 0.02 10^3uL; Immature Granulocytes % 0.2 %; Lymphocytes # 1.4 K/mm3 (0.7-4.5); Lymphocytes % 16.3 % (10-50); Mean Corpuscular HGB Conc 34.2 g/dL (31.8-35.4); Mean Corpuscular Hemoglobin 30.3 pg (27.0-31.2); Mean Corpuscular Volume 88.5 fl (81-99); Mean Platelet Volume 9.4 fl (7.4-10.4); Monocytes # 0.3 K/mm3 (0.1-1.0); Monocytes % 3.9 % (1.7-9.3); Neutrophils # 6.9 K/mm3 (1.8-7.8); Neutrophils % 79.1 % (37.0-80.0); Nucleated Red Blood Cells # 0 10^3/uL; Nucleated Red Blood Cells % 0 %; Platelet Count 291 K/mm3 (142-424); Red Blood Count 4.36 M/mm3 (4.20-5.40); Red Cell Distribution Width 12.4 % (11.5-17.5); Red Cell Distribution Width-SD 40.7 fL; White Blood Count 8.8 K/mm3 (4.8-10.8)
[2024-11-01 08:11] LABS: Albumin Level 5.4 g/dl (3.5-5.0); Chloride 104 mmol/L (98-107); Potassium 4.4 mmoL/L (3.5-5.1); Sodium 138 mmol/L (136-145)
[2024-11-01 08:13] LABS: Blood Urea Nitrogen 14 mg/dl (7-17); Creatinine Clearance Estimated 122 mL/min (50-200); Estimated Glomerular Filt Rate 117 ml/min (>60); GFR (African American) 141 ML/MIN (>60)
[2024-11-01 08:14] LABS: Alanine Aminotransferase 29 U/L (12-78); Albumin/Globulin Ratio 1.3 (1.1-1.8); Alkaline Phosphatase 39 U/L (38-126); Anion Gap 13.4 mEq/L (5-15); Aspartate Amino Transferase 64 U/L (14-36); Bilirubin,Total 1.6 mg/dl (0.2-1.3); Calcium 9.3 mg/dl (8.4-10.2); Carbon Dioxide 25 mmol/L (22.0-30.0); Globulin 4.2 g/dL (1.3-3.2); Glucose 94 mg/dl (74-100); Total Protein,Serum 9.6 g/dl (6.3-8.2)
[2024-11-01] MEDS: CLINDAMYCIN 150MG CAPSULE 450 MG PO (09:00)
[2024-11-01 09:06] LABS: HIV Combo NEGATIVE (Negative)
--- NOTE | 2024-11-01 09:06 | PC.NURSE ---
dr samaniego at bedside to update pt
[2024-11-01 09:14] LABS: Hepatitis C Ab Qual. W/ RFX REACTIVE (Negative)
[2024-11-01] MEDS: DALBAVANCIN HCL 1,500 MG in DEXTROSE 5 % IN WATER 250 ML 500 MG IV (09:30)
[2024-11-01 09:36] LABS: C-Reactive Protein 3.6 mg/L (0-4)
--- NOTE | 2024-11-01 09:37 | PC.NURSE ---
PT MEDICATED PER EAMR, UPDATED ON POC. NO NEEDS AT THIS TIME. CALL LIGHT WITHIN REACH
[2024-11-01 10:10] LABS: HCG,Quantitative < 2 mIU/ml (0-5.42)
[2024-11-01] MEDS: CEFTRIAXONE SODIUM 2 GM in 0.9 % SODIUM CHLORIDE 100 ML IV (10:40)
== END 2024-11-01 11:13 | disposition left against medical advice (07) ==
PROVIDERS: Emergency Provider Emergency Medicine
DX: L08.9 Local infection of the skin and subcutaneous tissue, unspecified (principal); F15.188 Other stimulant abuse with other stimulant-induced disorder; R93.1 Abnormal findings on diagnostic imaging of heart and coronary circulation; F17.210 Nicotine dependence, cigarettes, uncomplicated
CPT/HCPCS: 36415; 80053; 80074; 84702; 85025; 86140; 87040; 87389; 87522; 93306; 96365; 96366; 96375; 99285; J0696; J0875; J7060

== ENCOUNTER 2024-11-02 11:57 | Observation (INO) | payer MEDICAID, SELFPAY ==
[2024-11-02] VITALS (10 sets, daily range): BP systolic 105–124; BP diastolic 58–88; PULSE 60–97; RESP 14–18; TEMP 36.6–36.9; O2SAT 93–100; BMI 22.8; BMI 21.0
--- NOTE | 2024-11-02 12:01 | ED_ITS ---
<Statement entered by Yenifer Riggs DO - 11/05/24 15:00> I was consulted by the CORBY, and we discussed the complexity of the problems being addressed. I approved the treatment and management plan for this patient's care in the emergency department, thus performing a substantive portion of the medical decision making. Yenifer Riggs DO Discharge Plan Disposition Patient Disposition: Home, Self-Care Condition: Good Clinical Impressions Clinical Impression: Abnormal echocardiogram, Skin infection, History of intravenous drug use, Endocarditis, suspected Discharge ED Provider: Yenifer Riggs General Adult HPI General Chief complaint: Recheck/Abnormal Lab/Rx Stated complaint: Staph Time Seen by Provider: 11/02/24 12:00 History of Present Illness HPI narrative: Patient Bridget presents after leaving AMA for hospital admission. Patient was seen and examined yesterday for a skin infection. Patient also has a history of IV drug use. Patient had a full workup yesterday including complete cardiac ultrasound that showed questionable vegetation on one of her heart valves. It was recommended that she be admitted for LILLY however patient declined and signed out AGAINST MEDICAL ADVICE. She Bridget presents today and is agreeable to admission. She denies any new symptoms like shortness of breath fever chills hemoptysis hematochezia melena nausea vomiting diarrhea or chest pain. Related Data Home Medications ?Medication ?Instructions ?Recorded ?Confirmed cariprazine 3 mg capsule (Vraylar) 3 mg PO DAILY 11/0111/01/24 clonidine HCl 0.1 mg tablet 0.1 mg PO DAILY 11/01/24 0 11/01/24 ergocalciferol (vitamin D2) 1,250 1,250 mcg PO DAILY 0 11/01/24 11/01/24 mcg (50,000 unit) capsule (Vitamin D2) Allergies Allergy/AdvReac Type Severity Reaction Status Date / Time codeine (CODEINE) Allergy Severe Anaphylaxis Verified 11/01/24 10:13 doxycycline (DOXYCYCLINE) Allergy Severe Anaphylaxis Verified 11/01/24 10:13 hyoscyamine (From Levsin) Allergy Severe Joint Pain Verified 11/01/24 10:13 penicillin G (PENICILLIN G) Allergy Severe Anaphylaxis Verified 11/01/24 10:13 aspirin (ASPIRIN) Allergy Mild Rash Verified 11/01/24 10:13 [facility] Disclaimer: The information contained in this section may have been updated after the patient was seen, as this information can be updated by other users. Medical History Asthma Right bundle branch block Surgical History History of appendectomy Family History Sister Cancer Ovarian Grandmother Cancer OVARIAN Other Diabetes Hypertension Social History Smoking Status: Current every day smoker tobacco type: cigarettes packs per day: 1 smoking status stop date: 09/29/2023 second hand exposure: Yes alcohol intake: never substance use type: marijuana, crack/cocaine, opiates, IV drugs and methamphetamine current occupational status: other Travel in the last 8 weeks?: None caffeine: Yes Have you lived/traveled outside [place] in past 30 days?: No Contact w/someone who lives/traveled outside US past 30 days?: No Exposure to someone with infectious disease in past 14 days?: No Do you have a fever (greater than 100.4 F or 38 C)?: No Have you tested positive for COVID-19?: No Exposed to someone with COVID-19 in past 14 days?: No Do you have a sore throat?: No Do you have a cough?: No Do you have any weakness?: No Do you have any diarrhea?: No Are you experiencing any unusual bleeding?: No Do you have any muscle aches/pain?: No Do you have any abdominal pain?: No Are you experiencing loss of taste or smell?: No Other Medical History Have you received the Flu Vaccine for this season: No Have you received the Pneumonia Vaccine: No ROS Obtained: Yes Systems reviewed as appropriate & no additional complaints except as documented Physical Exam General General appearance: alert and in no apparent distress Respiratory Respiratory exam: Present normal lung sounds bilaterally Cardiovascular Cardiovascular exam: Present regular rate Neurological Exam Neurological exam: Present alert and oriented X3 Medical Decision Making Medical Records Medical records reviewed: Yes I reviewed the patient's medical records. Screening: Per USPSTF and CDC recommendations, given the prevalence of disease in our region, it is our hospital?s policy to screen for HIV and viral Hepatitis for all patients aged 18 and over and those with ongoing risk factors. Moncho Inquiry Pt receiving controlled substance: No Vital Signs: 11/02/24 12:05 11/02/24 12:30 11/02/24 13:01 Temperature 98.5 F Temperature Source Oral Pulse Rate 97 H 94 H Pulse Rate [Radial] 90 Respiratory Rate 18 Blood Pressure 119/77 116/81 Blood Pressure [Right Arm] 117/75 Blood Pressure Mean 88 87 Blood Pressure Mean [Right Arm] 89 Blood Pressure Source [Right Arm] Automatic Cuff Blood Pressure Position [Right Arm] Sitting 02 Sat by Pulse Oximetry 100 99 99 Oxygen Delivery Method Room Air 11/02/24 13:30 11/02/24 14:01 11/02/24 14:30 Temperature Temperature Source Pulse Rate Pulse Rate [Radial] Respiratory Rate Blood Pressure 123/76 105/74 L 117/62 Blood Pressure [Right Arm] Blood Pressure Mean 84 86 80 Blood Pressure Mean [Right Arm] Blood Pressure Source [Right Arm] Blood Pressure Position [Right Arm] 02 Sat by Pulse Oximetry Oxygen Delivery Method 11/02/24 15:09 Temperature 98.4 F Temperature Source Oral Pulse Rate Pulse Rate [Radial] 75 Respiratory Rate 14 Blood Pressure Blood Pressure [Right Arm] 122/88 Blood Pressure Mean Blood Pressure Mean [Right Arm] 99 Blood Pressure Source [Right Arm] Automatic Cuff Blood Pressure Position [Right Arm] Sitting 02 Sat by Pulse Oximetry 93 L Oxygen Delivery Method Room Air Lab Data Lab results reviewed: Yes I reviewed the patient's lab results. Lab Results 11/02/24 12:57: WBC 5.9 D, RBC 4.28, Hgb 13.3, Hct 38.0, MCV 88.8, MCH 31.1, MCHC 35.0, RDW 12.4, Plt Count 269, MPV 8.7, Neut % (Auto) 68.9, Lymph % (Auto) 22.4, Power % (Auto) 6.6, Eos % (Auto) 1.5, Baso % (Auto) 0.3, Neut # (Auto) 4.1, Lymph # (Auto) 1.3, Power # (Auto) 0.4, Eos # (Auto) 0.1, Baso # (Auto) 0.0, Sodium 140, Potassium 3.1 L D, Chloride 104, Carbon Dioxide 27, Anion Gap 12.1, BUN 10 D, Creatinine 0.70, Estimated Creat Clear 104, Estimated GFR 98, Est GFR ( Amer) 118, Glucose 98, Calcium 9.4, Total Bilirubin 0.6, AST 31 D, ALT 26, Alkaline Phosphatase 63, Total Protein 8.6 H, Albumin 4.9, Globulin 3.7 H, Albumin/Globulin Ratio 1.3, Serum HCG, Qual Negative 11/02/24 12:57 11/02/24 12:57 Orders (Tests/Meds): ED MEDICATIONS Generic Name Dose Route Start Last Admin Trade Name Frenandini PRN Reason Stop Dose Admin Acetaminophen 650 mg 11/02/24 14:02 Acetaminophen 325mg Tab PO 12/02/24 14:01 Q4HP PRN Fever or Mild Pain (1-3) Enoxaparin Sodium 40 mg 11/03/24 09:00 Enoxaparin 40mg/0.4ml Syringe SUBCUT 12/03/24 08:59 DAILY HARSHAD Ceftriaxone Sodium 2 gm/ 100 mls @ 200 mls/hr 11/02/24 14:30 Sodium Chloride IV 11/12/24 14:29 Q24H HARSHAD Vancomycin HCl 1,000 mg/ 250 mls @ 125 mls/hr 11/02/24 21:00 Sodium Chloride IV 11/12/24 20:59 Q12H HARSHAD Nicotine 21 mg 11/02/24 14:02 Nicotine 21mg/24hr Patch TD 12/02/24 14:01 DAILYP PRN Nicotine Cravings Discontinued Medications Generic Name Dose Route Start Last Admin Trade Name Freq PRN Reason Stop Dose Admin Vancomycin HCl 1,000 mg/ 250 mls @ 125 mls/hr 11/02/24 12:45 11/02/24 13:04 Sodium Chloride IV 11/02/24 14:44 125 mls/hr ONCE ONE Administration Miscellaneous 1 each 11/02/24 12:30 11/02/24 13:17 Vancomycin Consult Request NOTAPPLIC 12/02/24 12:29 1 each CONSULT PHARMACY [facility] Administration ORDERS Category Date Time Status CBC w/Auto Diff [Complete Blood Count Auto Diff] Stat Lab 11/02/24 12:57 Completed CMP [Comprehensive Metabolic Panel] Stat Lab 11/02/24 12:57 Completed HCG Qualitative, Serum Stat Lab 11/02/24 12:57 Completed Medical Decision Narrative: In summary patient is a 29-year-old female who presents to the emergency department for evaluation of an abnormal echo done yesterday skin infection IV drug use. Patient is hemodynamically stable upon arrival, afebrile. Physical exam is remarkable for a well-nourished well-developed 29-year-old female who is currently in no acute distress. Physical exam reveals numerous excoriated lesions about her face and visible extremities. Patient received Dalvance and clindamycin and Rocephin before she left AMA. Heart sounds S1-S2 regular rate rhythm no murmurs gallops rubs or thrills.. Differential diagnosis includes abnormal echocardiogram versus endocarditis versus bacteremia etc. Initial workup will be conducted with hematologic labs.. Initial interventions include vancomycin started as patient had 3 sets of blood cultures yesterday. Initial workup reviewed by me shows that her white count is normal with normal H&H no neutrophilic shift potassium is slightly low at 3.1 and the remainder of her hematologic labs are nonactionable. Given this I had an interactive discussion with hospital medicine regarding patient presentation HERNANDES and management and request for LILLY by cardiology and she will be admitted for further evaluation and care. Critical Care Critical Care Time Critical Care Time: No
--- OUTSIDE RECORDS SUMMARY | 2024-11-02 12:16 | XMS_ITS | Clinical Summary ---
Author Organization Healthcare Address [address] [place] [address] Care Team Providers Care Technical Aid Name Role Phone Yeimi Cortés Unavailable Unavailable [...] contact the research coordinator when admitted at [phone]. The patient will need a pink tube [...] completely dilated or going to OR at [phone]. care, unspecified trimester 09/30/2023 Rubella non-immune status, [...] place to sleep or slept in a nursing home (including now)? No 09/17/2023 Mcdowell Depression Scale Answer Date Recorded Mcdowell Depression Scale Total 10 01/28/2024 The thought [...] drink first t edel in the morning (EYE-OVERCOILER) to steady your nerves or to get [...] of 3 - 19+ 3-dose series) 2012 [id number] Vaccine ( season) 2024 08/16/2021, 08/22/2020, 07/20/2020 [...] Reactive Non Reactive 12/24/2023 12:18 PM EDT [facility] Comment:Screening for HIV 1 & 2 antibodies, and P24 antigen is NONREACTIVE. No confirmatory testing is required. Blood Venous blood specimen / Unknown Venipuncture / Unknown 12/24/2023 9:26 AM EDT 12/24/2023 9:31 AM EDT Sulema Abdalla MD LAB BLOOD ORDERABLES Final Re sult [facility] [address] [place] [address] * (ABNORMAL) Pap Test (07/10/2021 12:05 PM EST) Case Report Cytology Case: [id number] Authorizing Provider: Monica Sánchez CNM Collected: 07/10/2021 1205 Ordering Location: [facility] Received: 07/11/2021 0829 First Screen: Bryce Miller, CT Pathologist: Savannah Tovar MD Specimen: ThinPrep Pap Test, Liquid-Based Cervical/Vaginal, CERVICAL/VAGINAL 07/16/2021 9:24 AM EST [facility] Interpretation LOW GRADE SQUAMOUS INTRAEPITHELIAL LESION (LSIL)(A) 07/16/2021 9:24 AM EST [facility] at 0924 EST Specimen Adequacy Satisfactory for evaluation; endocervical/gaines sformation zone component present. Slide scanned and imaged by ThinPrep Imaging System with manual review of all selected durand. 07/16/2021 9:24 AM EST [facility] Cervical cytology is a screening test [...] results is suggested (please call Microbiology at [phone] for results). 07/16/2021 9:24 AM EST [facility] Menstrual Status Unknown 07/16/19 9:24 AM [...] ORDERAB LES Final Result [facility] [address] [place] [address] from Last 3 Months or Most Recently [...] Patient has decision-making capacity? Yes Care Teams Technical Aid Relationship Specialty Start Date End Date Pcp, No [address] [place] [address] PCP - General Family Medicine 01/10/23 Yeimi Cortés Registered Nurse Obstetrics and Gynecology 11/18/23 Xenia Hernandez Community Health Worker 09/25/23 5 Columba Melendez, RN [facility] Registered Nurse Maternal and Medicine 12/16/23 04/07/25
--- NOTE | 2024-11-02 12:42 | PC.NURSE ---
Rounded on patient, no needs voiced at this time. patient updated on POC.
[2024-11-02] MEDS: VANCOMYCIN HCL 1,000 MG in 0.9 % SODIUM CHLORIDE 250 ML 125 MG IV ×2 (13:04→20:53)
[2024-11-02 13:07] LABS: Basophils % 0.3 % (0.1-2.0); Eosinophils # 0.1 Kmm3 (0.0-0.4); Eosinophils % 1.5 % (0.1-12.0); Hemoglobin 13.3 g/dL (12.2-16.2); Immature Granulocytes # 0.02 10^3uL; Immature Granulocytes % 0.3 %; Lymphocytes # 1.3 K/mm3 (0.7-4.5); Lymphocytes % 22.4 % (10-50); Mean Corpuscular Hemoglobin 31.1 pg (27.0-31.2); Mean Corpuscular Volume 88.8 fl (81-99); Mean Platelet Volume 8.7 fl (7.4-10.4); Monocytes # 0.4 K/mm3 (0.1-1.0); Monocytes % 6.6 % (1.7-9.3); Neutrophils # 4.1 K/mm3 (1.8-7.8); Neutrophils % 68.9 % (37.0-80.0); Nucleated Red Blood Cells # 0 10^3/uL; Nucleated Red Blood Cells % 0 %; Platelet Count 269 K/mm3 (142-424); Red Blood Count 4.28 M/mm3 (4.20-5.40); Red Cell Distribution Width 12.4 % (11.5-17.5); Red Cell Distribution Width-SD 40.4 fL; White Blood Count 5.9 K/mm3 (4.8-10.8)
[2024-11-02 13:13] LABS: Albumin Level 4.9 g/dl (3.5-5.0); Chloride 104 mmol/L (98-107); Potassium 3.1 mmoL/L (3.5-5.1); Sodium 140 mmol/L (136-145)
[2024-11-02 13:16] LABS: Alanine Aminotransferase 26 U/L (12-78); Albumin/Globulin Ratio 1.3 (1.1-1.8); Alkaline Phosphatase 63 U/L (38-126); Anion Gap 12.1 mEq/L (5-15); Aspartate Amino Transferase 31 U/L (14-36); Bilirubin,Total 0.6 mg/dl (0.2-1.3); Blood Urea Nitrogen 10 mg/dl (7-17); Carbon Dioxide 27 mmol/L (22.0-30.0); Creatinine Clearance Estimated 104 mL/min (50-200); Estimated Glomerular Filt Rate 98 ml/min (>60); GFR (African American) 118 ML/MIN (>60); Globulin 3.7 g/dL (1.3-3.2); Total Protein,Serum 8.6 g/dl (6.3-8.2)
[2024-11-02 13:17] LABS: Calcium 9.4 mg/dl (8.4-10.2); Glucose 98 mg/dl (74-100)
[2024-11-02] MEDS: VANCOMYCIN CONSULT REQUEST 1 EACH NOTAPPLIC (13:17)
--- NOTE | 2024-11-02 13:33 | PC.NURSE ---
on phone with MANAGER OUTPATIENT for admission
--- NOTE | 2024-11-02 13:35 | PC.NURSE ---
call made to house for admission for possible endocarditis
--- NOTE | 2024-11-02 13:57 | PC.NURSE ---
report called to marie butterfield on second floor
[2024-11-02 14:40] LABS: HCG Qualitative, Serum Negative (Negative)
--- NOTE | 2024-11-02 14:56 | EXP.PHA.CONS ---
Pharmacy Consult Date: 11/02/24 Time: 14:56 Referring provider: DR. ZURITA Reason for Consult:: VANCOMYCIN DOSING Allergies Allergy/AdvReac Type Severity Reaction Status Date / Time codeine (CODEINE) Allergy Severe Anaphylaxis Verified 11/01/24 10:13 doxycycline (DOXYCYCLINE) Allergy Severe Anaphylaxis Verified 11/01/24 10:13 hyoscyamine (From Levsin) Allergy Severe Joint Pain Verified 11/01/24 10:13 penicillin G (PENICILLIN G) Allergy Severe Anaphylaxis Verified 11/01/24 10:13 aspirin (ASPIRIN) Allergy Mild Rash Verified 11/01/24 10:13 Home Medications ?Medication ?Instructions ?Recorded ?Confirmed ?Type cariprazine 3 mg capsule (Vraylar) 3 mg PO DAILY 11/01/24 11/01/24 History cefdinir 300 mg capsule 300 mg PO BID possible 11/01/24 Rx endocarditis 10 days #20 caps clonidine HCl 0.1 mg tablet 0.1 mg PO DAILY 11/01/24 11/01/24 History ergocalciferol (vitamin D2) 1,250 1,250 mcg PO DAILY 11/01/24 11/01/24 History mcg (50,000 unit) capsule (Vitamin D2) New Prescriptions to Start Prescriptions: Height: 1.57 m Weight: 56.699 kg Laboratory Results:: Laboratory Results - last 24 hr 11/02/24 12:57: WBC 5.9 D, RBC 4.28, Hgb 13.3, Hct 38.0, MCV 88.8, MCH 31.1, MCHC 35.0, RDW 12.4, Plt Count 269, MPV 8.7, Neut % (Auto) 68.9, Lymph % (Auto) 22.4, Briscoe % (Auto) 6.6, Eos % (Auto) 1.5, Baso % (Auto) 0.3, Neut # (Auto) 4.1, Lymph # (Auto) 1.3, Briscoe # (Auto) 0.4, Eos # (Auto) 0.1, Baso # (Auto) 0.0, Sodium 140, Potassium 3.1 L D, Chloride 104, Carbon Dioxide 27, Anion Gap 12.1, BUN 10 D, Creatinine 0.70, Estimated Creat Clear 104, Estimated GFR 98, Est GFR ( Amer) 118, Glucose 98, Calcium 9.4, Total Bilirubin 0.6, AST 31 D, ALT 26, Alkaline Phosphatase 63, Total Protein 8.6 H, Albumin 4.9, Globulin 3.7 H, Albumin/Globulin Ratio 1.3, Serum HCG, Qual Negative Medical History: Medical History (Updated 11/02/24 @ 13:36 by MARIBELL Nicolas) Asthma Right bundle branch block Assessment and Plan Assessment and plan all Dx Assessment and Plan for all problems:: Pharmacokinetic dosing service Objective: Patient: Floor: Age: 29 yo Serum creatinine: 0.7 mg/dL Height: 62.0 Inches Weight (kg): 57.7 Assessment: IBW (kg): 50.10 Dosing wt(kg): 57.7 Estimated Creatinine clearance (ml/min): 92.1 CRCL method: Cockcroft and Gault using ibw(default). Drug selected: Vancomycin Loading dose (mg): 0 Vd (liters): 46.2 (factor used: 0.8 L/kg) Drake (hr-1): 0.081 Half life (hrs): 8.56 Recommended dose: 1000 mg Interval: 12 hrs Infusion time (hrs): 2.0 Predicted peak (mcg/mL): 32.1 Predicted trough (mcg/mL): 14.28 Total body weight is being used for vancomycin dosing. Recommendations: Give Vancomycin 1000 mg q 12 hrs with an expected Cpeak of 32.1 mcg/ml and an expected Ctrough of 14.28 mcg/ml ----Vanco only - ignore for aminoglycosides----- CLvanco= 3.74 L/hr AUC 0-24 /VEGA Data: VEGA 0.5 mcg/mL: AUC/VEGA: 1069.5 VEGA 1.0 mcg/mL: AUC/VEGA: 534.8 --------- VEGA 1.5 mcg/mL: AUC/VEGA: 356.5 VEGA 2.0 mcg/mL: AUC/VEGA: 267.4
--- NOTE | 2024-11-02 15:00 | P.CONCA_ITS ---
History of Present Illness History of Present Illness Consult date: 11/02/24 Requesting physician: Angel Martinez Chief complaint: Rash all over her face History of present illness: This is a 29-year-old female who presented to the emergency department initially yesterday with bumps all over face and swelling in the left side of her face. The patient does have a past medical history of IV methamphetamine and cocaine use. She states that she suddenly developed the sores all over her body on Friday. She states that when she got out of the shower the rash was significant all over her face. It is also spreading down to her arms. The patient states that this continues to worsen. While in the emergency department yesterday she had an echocardiogram that was concerning for vegetation on her tricuspid valve. Patient was recommended to be admitted to the hospital. She ended up leaving AMA on oral antibiotics. She states that she had to go pick her daughter up from daycare and arrange childcare for her daughter. She states that she was able to find childcare for her daughter today and came back for treatment of this possible vegetation to her tricuspid valve. She states that she has been having sharp chest pain in the center of her chest and shortness of breath with exertion for the last 2 to 3 months. She states her symptoms are worse with exertion and do improve with rest. She states that she has also been having t achycardia. With the onset of the rash on her face she states that she has been having chills and getting sweaty. She states that she has not checked her temperature to see if she has had a fever. The patient reports that she always has acne on her face but this rash is significantly worse than what is typical for her. She denies any nausea, vomiting, diarrhea, PND or orthopnea. She denies any lower extremity edema. [facility] Disclaimer: The information contained in this section may have been updated after the patient was seen, as this information can be updated by other users. Medical History Asthma Right bundle branch block Surgical History History of appendectomy Family History Sister Cancer Ovarian Grandmother Cancer OVARIAN Other Diabetes Hypertension Social History Smoking Status: Current every day smoker tobacco type: cigarettes packs per day: 1 smoking status stop date: 09/29/2023 second hand exposure: Yes alcohol intake: never substance use type: marijuana, crack/cocaine, opiates, IV drugs and methamphetamine current occupational status: other Travel in the last 8 weeks?: None caffeine: Yes Have you lived/traveled outside [place] in past 30 days?: No Contact w/someone who lives/traveled outside US past 30 days?: No Exposure to someone with infectious disease in past 14 days?: No Do you have a fever (greater than 100.4 F or 38 C)?: No Have you tested positive for COVID-19?: No Exposed to someone with COVID-19 in past 14 days?: No Do you have a sore throat?: No Do you have a cough?: No Do you have any weakness?: No Do you have any diarrhea?: No Are you experiencing any unusual bleeding?: No Do you have any muscle aches/pain?: No Do you have any abdominal pain?: No Are you experiencing loss of taste or smell?: No Review of Systems Review of Systems Review of systems:: pertinent systems reviewed and negative unless documented below Constitutional Constitutional: Reports system reviewed and no additional complaints, except as documented, Reports chills, Reports excessive sweating, Reports fatigue and Reports lethargy Eyes Eyes: Reports system reviewed and no additional complaints, except as documented ENT Ears, Nose, Mouth, and Throat: Reports system reviewed and no additional com plaints, except as documented *Cardiovascular Cardiovascular: Reports system reviewed and no additional complaints, except as documented, Reports chest pain, Reports chest pain at rest, Reports chest pain with activity, Reports dyspnea, Reports dyspnea on exertion, Denies leg edema, Reports palpitations and Reports rapid heart rate *Respiratory Respiratory: Reports system reviewed and no additional complaints, except as documented, Reports dyspnea and Reports dyspnea on exertion *Gastrointestinal Gastrointestinal: Reports system reviewed and no additional complaints, except as documented *Genitourinary Genitourinary: Reports system reviewed and no additional complaints, except as documented *Musculoskeletal Musculoskeletal: Reports system reviewed and no additional complaints, except as documented Integumentary/Breasts Skin/Breast: Reports system reviewed and no additional complaints, except as documented *Neurologic Neurologic: Reports system reviewed and no additional complaints, except as documented Psychiatric Psychiatric: Reports system reviewed and no additional complaints, except as documented Endocrine Endocrine: Reports system reviewed and no additional complaints, except as documented, Reports excessive sweating, Reports fatigue and Reports palpitations Hematologic/Lymphatic Hematologic/Lymphatic: Reports system reviewed and no additional complaints, except as documented Allergic/Immunologic Allergic/Immunologic: Reports system reviewed and no additional complaints, except as documented Exam Data for Last 24 hours Vital signs and Labs for Last 24 Hours: Temp Pulse Resp BP Pulse Ox O2 Del Method 98.5 F 94 H 18 116/81 99 Room Air 11/02/24 12:05 11/02/24 13:01 11/02/24 12:05 11/02/24 13:01 11/02/24 13:01 11/02/24 12:05 Laboratory Results - last 24 hr 11/02/24 12:57: WBC 5.9 D, RBC 4.28, Hgb 13.3, Hct 38.0, MCV 88.8, MCH 31.1, MCHC 35.0, RDW 12.4, Plt Count 269, MPV 8.7, Neut % (Auto) 68.9, Lymph % (Auto) 22.4, [place] % (Auto) 6.6, Eos % (Auto) 1.5, Baso % (Auto) 0.3, Neut # (Auto) 4.1, Lymph # (Auto) 1.3, [place] # (Auto) 0.4, Eos # (Auto) 0.1, Baso # (Auto) 0.0, Sodium 140, Potassium 3.1 L D, Chloride 104, Carbon Dioxide 27, Anion Gap 12.1, BUN 10 D, Creatinine 0.70, Estimated Creat Clear 104, Estimated GFR 98, Est GFR ( Amer) 118, Glucose 98, Calcium 9.4, Total Bilirubin 0.6, AST 31 D, ALT 26, Alkaline Phosphatase 63, Total Protein 8.6 H, Albumin 4.9, Globulin 3.7 H, Albumin/Globulin Ratio 1.3, Serum HCG, Qual Negative I & O for Last 24 hours: Intake & Output 10/30/24 10/31/24 11/01/24 11/02/24 23:59 23:59 23:59 23:59 Weight 125 lb Constitutional Constitutional: no acute distress and average body habitus *Routine HEENT Exam Head: Present normocephalic and atraumatic ENT: Present mucous membranes moist *Routine Neck Exam Neck: Present supple, full ROM and normal carotid upstroke; Absent JVD, carotid bruit or lymphadenopathy *Routine Respiratory Exam Respiratory: Present CTA bilaterally, normal respiratory effort, able to speak in complete sentences and symmetric chest movement *Routine Cardiovascular Exam Cardiovascular: Present RRR, Normal S1 and Normal S2; Absent murmur or gallop *Routine Abdominal Exam Abdominal: Present soft and normoactive bowel sounds; Absent tenderness, distended or organomegaly *Routine Extremities Exam Extremities: Present full ROM, pulses intact and normal capillary refill; Absent cyanosis, clubbing or edema *Routine Skin Exam Skin: Present intact, erythema, warm and rash Comments: Patient has a red, crusted rash all over her face and down to her arms *Routine Neurological Exam Neurological: Present alert, oriented X3 and CN II-XII intact; Absent sensory deficit or motor deficit Routine Psychiatric Exam Psychiatric: Present normal affect Meds Home Medications and Allergies Home Medications ?Medication ?Instructions ?Recorded ?Confirmed ?Type cariprazine 3 mg capsule (Vraylar) 3 mg PO DAILY 11/0111/01/24 History cefdinir 300 mg capsule 300 mg PO BID possible 11/01 Rx endocarditis 10 days #20 caps clonidine HCl 0.1 mg tablet 0.1 mg PO DAILY 11/01/24 0 11/01/24 History ergocalciferol (vitamin D2) 1,250 1,250 mcg PO DAILY 0 11/01/24 11/01/24 History mcg (50,000 unit) capsule (Vitamin D2) New Prescriptions to Start Prescriptions: Allergies Allergy/AdvReac Type Severity Reaction Status Date / Time codeine (CODEINE) Allergy Severe Anaphylaxis Verified 11/01/24 10:13 doxycycline (DOXYCYCLINE) Allergy Severe Anaphylaxis Verified 11/01/24 10:13 hyoscyamine (From Levsin) Allergy Severe Joint Pain Verified 11/01/24 10:13 penicillin G (PENICILLIN G) Allergy Severe Anaphylaxis Verified 11/01/24 10:13 aspirin (ASPIRIN) Allergy Mild Rash Verified 11/01/24 10:13 Assessment and Plan *Assessment and plan (1) Endocarditis, suspected: Status: Acute Category: Medical Code(s): R09.89 - Other specified symptoms and signs involving the circulatory and respiratory systems (2) History of intravenous drug use: Status: Acute Category: Social Hx Code(s): Z87.898 - Personal history of other specified conditions (3) Skin infection: Status: Acute Category: Medical Code(s): L08.9 - Local infection of the skin and subcutaneous tissue, unspecified (4) Abnormal echocardiogram: Status: Acute Category: Medical Code(s): R93.1 - Abnormal findings on diagnostic imaging of heart and coronary circulation (5) Substance abuse: Status: Acute Category: Medical Code(s): F19.10 - Other psychoactive substance abuse, uncomplicated Plan Plan: 1. The patient has been admitted to the hospital due to an abnormal echocardiogram. There is a suspected cyst, small sized, echodensity in the vicinity of the tricuspid valve concerning for infective endocarditis. Will plan to proceed with LILLY tomorrow for further evaluation for infective endocarditis. 2. The patient has been itching the risk and benefits of proceeding with LILLY. The patient verbalizes understanding and is agreeable in proceeding with the procedure. 3. The patient will be n.p.o. after midnight in preparation for LILLY in the [facility]. 4. She has been started on IV antibiotics for suspected infective endocarditis. 5. She does have a skin rash all over her face and is also on her arms. As mentioned above she has been started on IV antibiotics. She would benefit from a dermatology referral. 6. If the patient does have infective endocarditis she will need to be transferred to [facility] for further evaluation and treatment of her infective endocarditis and to be evaluated by ID. 7. Further recommendations will be made pending the patient's response to treatment and the results of her LILLY tomorrow. Thank you for the opportunity to help dissipate in the care of this patient. All recommendations and orders are per Dr. Westfall.
--- NOTE | 2024-11-02 15:03 | P.HP_ITS ---
<Statement entered by Angel Martinez MD - 11/02/24 16:35> Rounded on patient after nurse practitioner. Personally examined and interviewed patient. Agree with exam findings and care plan as documented. History of Present Illness *Admission Date: 11/02/24 *Reason for visit:: Suspected endocarditis *History of present illness: Ms. Valencia is a 29-year-old female who presented to the emergency department yesterday for evaluation of a rash that was on her face, arms, torso, legs. Patient states that she currently uses methamphetamines, and cocaine. Last known drug use was 2 days ago. She states that she snorts, smokes, or uses IV drugs. She is currently on parole, and her p.o. plans to send her to rehab next month. During assessment in the emergency room she denies shortness of breath, chest pain, edema. Lab work, and echo, blood cultures were all obtained. Echo showed potential for endocarditis, and it was advised to the patient that she needed a LILLY for further evaluation. Patient stated she was unable to stay for admission and was given Dalvance and 2 g of ceftriaxone for empiric treatment of the presumed endocarditis, and left AMA. Today patient presented again to the emergency room with worsening concern for rash and stated she was concerned about her heart infection . [facility] Disclaimer: The information contained in this section may have been updated after the patient was seen, as this information can be updated by other users. Medical History Asthma Right bundle branch block Surgical History History of appendectomy Family History Sister Cancer Ovarian Grandmother Cancer OVARIAN Other Diabetes Hypertension Social History Smoking Status: Current every day smoker tobacco type: cigarettes packs per day: 1 smoking status stop date: 09/29/2023 second hand exposure: Yes alcohol intake: never substance use type: marijuana, crack/cocaine, opiates, IV drugs and methamphetamine current occupational status: other Travel in the last 8 weeks?: None caffeine: Yes Have you lived/traveled outside US in past 30 days?: No Contact w/someone who lives/traveled outside US past 30 days?: No Exposure to someone with infectious disease in past 14 days?: No Do you have a fever (greater than 100.4 F or 38 C)?: No Have you tested positive for COVID-19?: No Exposed to someone with COVID-19 in past 14 days?: No Do you have a sore throat?: No Do you have a cough?: No Do you have any weakness?: No Do you have any diarrhea?: No Are you experiencing any unusual bleeding?: No Do you have any muscle aches/pain?: No Do you have any abdominal pain?: No Are you experiencing loss of taste or smell?: No Other Medical History Have you received the Flu Vaccine for this season: No Have you received the Pneumonia Vaccine: No Meds Home Medications and Allergies Home Medications ?Medication ?Instructions ?Recorded ?Confirmed ?Type cariprazine 3 mg capsule (Vraylar) 3 mg PO DAILY 11/0111/02/24 History clonidine HCl 0.1 mg tablet 0.1 mg PO DAILY 11/01/24 0 11/02/24 History ergocalciferol (vitamin D2) 1,250 1,250 mcg PO DAILY 0 11/01/24 11/02/24 History mcg (50,000 unit) capsule (Vitamin D2) New Prescriptions to Start Prescriptions: Allergies Allergy/AdvReac Type Severity Reaction Status Date / Time codeine (CODEINE) Allergy Severe Anaphylaxis Verified 11/01/24 10:13 doxycycline (DOXYCYCLINE) Allergy Severe Anaphylaxis Verified 11/01/24 10:13 hyoscyamine (From Levsin) Allergy Severe Joint Pain Verified 11/01/24 10:13 penicillin G (PENICILLIN G) Allergy Severe Anaphylaxis Verified 11/01/24 10:13 aspirin (ASPIRIN) Allergy Mild Rash Verified 11/01/24 10:13 Exam Data for Last 24 hours Vital signs and Labs for Last 24 Hours: Temp Pulse Resp BP Pulse Ox O2 Del Method 98.5 F 94 H 18 117/62 99 Room Air 11/02/24 12:05 11/02/24 13:01 11/02/24 12:05 11/02/24 14:30 11/02/24 13:01 11/02/24 12:05 Laboratory Results - last 24 hr 11/02/24 12:57: WBC 5.9 D, RBC 4.28, Hgb 13.3, Hct 38.0, MCV 88.8, MCH 31.1, MCHC 35.0, RDW 12.4, Plt Count 269, MPV 8.7, Neut % (Auto) 68.9, Lymph % (Auto) 22.4, [place] % (Auto) 6.6, Eos % (Auto) 1.5, Baso % (Auto) 0.3, Neut # (Auto) 4.1, Lymph # (Auto) 1.3, [place] # (Auto) 0.4, Eos # (Auto) 0.1, Baso # (Auto) 0.0, Sodium 140, Potassium 3.1 L D, Chloride 104, Carbon Dioxide 27, Anion Gap 12.1, BUN 10 D, Creatinine 0.70, Estimated Creat Clear 104, Estimated GFR 98, Est GFR ( Amer) 118, Glucose 98, Calcium 9.4, Total Bilirubin 0.6, AST 31 D, ALT 26, Alkaline Phosphatase 63, Total Protein 8.6 H, Albumin 4.9, Globulin 3.7 H, Albumin/Globulin Ratio 1.3, Serum HCG, Qual Negative I & O for Last 24 hours: Intake & Output 10/30/24 10/31/24 11/01/24 11/02/24 23:59 23:59 23:59 23:59 Weight 56.699 kg Constitutional Constitutional: no acute distress, disheveled and cooperative *Routine HEENT Exam Head: Present abrasion and facial swelling Eye: Present PERRL ENT: Present mucous membranes moist *Routine Neck Exam Neck: Present full ROM; Absent JVD *Routine Respiratory Exam Respiratory: Present CTA bilaterally, able to speak in complete sentences and s ymmetric chest movement *Routine Cardiovascular Exam Cardiovascular: Present RRR and tachycardia *Routine Abdominal Exam Abdominal: Present soft and normoactive bowel sounds; Absent tenderness *Routine Rectal Exam Rectal:: deferred *Routine Genitalia Exam Genitalia:: deferred *Routine Extremities Exam Extremities: Present full ROM; Absent edema *Routine Skin Exam Skin: Present lesions (Scattered lesions on face neck arms chest.) *Routine Neurological Exam Neurological: Present alert, oriented X3 and moving all extremities Routine Psychiatric Exam Psychiatric: Present normal affect and anxious Assessment and Plan *Assessment and plan (1) Endocarditis, suspected: Status: Acute Category: Medical Code(s): R09.89 - Other specified symptoms and signs involving the circulatory and respiratory systems (2) Skin infection: Status: Acute Category: Medical Code(s): L08.9 - Local infection of the skin and subcutaneous tissue, unspecified (3) History of intravenous drug use: Status: Acute Category: Social Hx Code(s): Z87.898 - Personal history of other specified conditions (4) Echocardiogram abnormal: Status: Acute Category: Medical Code(s): R93.1 - Abnormal findings on diagnostic imaging of heart and coronary circulation (5) Mood disorder: Status: Acute Category: Medical Code(s): F39 - Unspecified mood [affective] disorder (6) Drug withdrawal: Status: Acute Category: Medical Code(s): F19.939 - Other psychoactive substance use, unspecified with withdrawal, unspecified (7) Impetigo: Status: Acute Category: Medical Code(s): L01.00 - Impetigo, unspecified Plan Ms. Lamar is a 29-year-old female admitted to the hospital for IV antibiotics, and cardiology consult with LILLY procedure for suspected endocarditis. She is a current IV drug user of methametamines and cocaine. [facility] support contacted for further management and resources. Hospital medicine agreed to admit for further management: #Endocarditis, suspected #Intravenous drug use #Skin infection #Echocardiogram abnormal ?Assessment of patient reveals scattered skin lesions with scabs and crusts, on patient's face, neck, arms, chest, legs, back. Patient states the rash started on Friday morning and her face began swelling. Rash is very itchy and is spreading rapidly. She does state that the antibiotics given to her yesterday in the emergency room she thinks helped. ?[facility] support consulted for further resources for patient's history of drug use. ?Echocardiogram on 11/01 showed suspected tricuspid valve echodensity. EF 55%. ?Cardiology consulted for LILLY tomorrow. Patient agreeable to procedure. Plans to reevaluate after procedure. ?CBC, CMP, magnesium, TSH, lipid panel, PT/INR ordered for the morning. #Mood disorder #Drug withdrawal ?Restart patient's home medications Vraylar 3 mg daily and clonidine 0.1 mg daily. Full code Ambulate as tolerated Regular diet, n.p.o. after midnight Lovenox 40 mg subcu VTE prophylaxis
--- NOTE | 2024-11-02 15:30 | PC.WOUNDNOTE ---
sores to face multiple sizes Multiple sores, multiple sizes to (R) arm multiple sores to LUE sores to BLE multiple sores to (R) side multiple sores at different stages to RUE sores to LUE. Multiple sizes and at different stages
[2024-11-02] MEDS: CEFTRIAXONE SODIUM 2 GM in 0.9 % SODIUM CHLORIDE 100 ML IV (17:15)
[2024-11-03] VITALS (13 sets, daily range): BP systolic 96–124; BP diastolic 51–85; PULSE 58–88; RESP 14–18; TEMP 36.7–36.8; O2SAT 96–100; BMI 21.9
--- NOTE | 2024-11-03 04:38 | PC.NURSE ---
Pt. is alert and orientated x 4. Pt. is on room air. Pt was admitted for possible endocarditis and impetigo. Pt. is covered with multiple lesions to face, neck, BUE, chest, BLE, Pt. states the rashstarted Friday and got much worse over 3 days. Pt. presented to the ED on Wednesday 11/01 for evaluation of the rash. She left AMA and returned Thursday 11/02 and was admitted. Pt. is very talkative, pleasant and cooperative. Pt. has a hx. of drug use of Methamphetamines and Cocaine. she snorts, smokes or uses IV drugs. last ingestion was around 10/30. Lesions all over body are multiple sizes and some are scabbed, some ore open and oozing . IV fluids infusing. Pt. NPO after midnight for LILLY procedure 11/03. Pt. up and ambulates to bathroom independently. Personal items and call ramsey in reach, safety measures in place.
[2024-11-03] MEDS: ENOXAPARIN 40MG/0.4ML SYRINGE 40 MG SUBCUT (08:52)
[2024-11-03] MEDS: ERGOCALCIFEROL 50,000 UNITS (1.25MG) CAPSULE 50000 UNIT PO (08:52)
[2024-11-03] MEDS: VANCOMYCIN HCL 1,000 MG in 0.9 % SODIUM CHLORIDE 250 ML 125 MG IV (08:55)
--- NOTE | 2024-11-03 11:11 | PC.NURSE ---
PT TO SURGERY VIA BED WITH SURGERY STAFF
--- NOTE | 2024-11-03 11:21 | P.PN_ITS ---
Subjective Subjective Date: 11/03/24 Time: 10:00 Principal diagnosis: Suspected endocarditis Interval history: This is a 29-year-old female who presented to the emergency department with a rash all over her face and swelling in the left side of her face. The patient is a an IV methamphetamine and cocaine user. the patient had an echocardiogram that shows concern for possible vegetation on her tricuspid valve. She is scheduled to undergo LILLY today for further evaluation of her tricuspid valve to see if there is endocarditis. This morning she denies any chest pain or pressure. She denies any shortness of breath or edema. She denies any fever, chills, nausea, vomiting, diarrhea, PND orthopnea. Exam Data for Last 24 hours Vital signs and Labs for Last 24 Hours: Temp Pulse Resp BP Pulse Ox O2 Del Method 98.0 F 58 L 17 108/54 L 99 Room Air 11/03/24 09:21 11/03/24 09:21 11/03/24 09:21 11/03/24 09:21 11/03/24 09:21 11/03/24 10:56 Laboratory Results - last 24 hr 11/02/24 12:57: WBC 5.9 D, RBC 4.28, Hgb 13.3, Hct 38.0, MCV 88.8, MCH 31.1, MCHC 35.0, RDW 12.4, Plt Count 269, MPV 8.7, Neut % (Auto) 68.9, Lymph % (Auto) 22.4, [place] % (Auto) 6.6, Eos % (Auto) 1.5, Baso % (Auto) 0.3, Neut # (Auto) 4.1, Lymph # (Auto) 1.3, [place] # (Auto) 0.4, Eos # (Auto) 0.1, Baso # (Auto) 0.0, Sodium 140, Potassium 3.1 L D, Chloride 104, Carbon Dioxide 27, Anion Gap 12.1, BUN 10 D, Creatinine 0.70, Estimated Creat Clear 104, Estimated GFR 98, Est GFR ( Amer) 118, Glucose 98, Calcium 9.4, Total Bilirubin 0.6, AST 31 D, ALT 26, Alkaline Phosphatase 63, Total Protein 8.6 H, Albumin 4.9, Globulin 3.7 H, Albumin/Globulin Ratio 1.3, Serum HCG, Qual Negative I & O for Last 24 hours: Intake & Output 10/31/24 11/01/24 11/02/24 11/03/24 23:59 23:59 23:59 23:59 Intake Total 600 / 950 600 / 600 Output Total 0 / 200 200 / 200 Balance 600 / 750 400 / 400 Weight 115 lb 119 lb 8 oz Constitutional Constitutional: no acute distress and average body habitus *Routine HEENT Exam Head: Present normocephalic and atraumatic ENT: Present mucous membranes moist *Routine Neck Exam Neck: Present supple, full ROM and normal carotid upstroke; Absent JVD, carotid bruit or lymphadenopathy *Routine Respiratory Exam Respiratory: Present CTA bilaterally, normal respiratory effort, able to speak in complete sentences and symmetric chest movement *Routine Cardiovascular Exam Cardiovascular: Present RRR, Normal S1 and Normal S2; Absent murmur or gallop *Routine Abdominal Exam Abdominal: Present soft and normoactive bowel sounds; Absent tenderness, distended or organomegaly *Routine Extremities Exam Extremities: Present full ROM, pulses intact and normal capillary refill; Absent cyanosis, clubbing or edema *Routine Skin Exam Skin: Present intact, erythema, warm and rash Comments: Patient has a red, crusted rash all over her face and down to her arms *Routine Neurological Exam Neurological: Present alert, oriented X3 and CN II-XII intact; Absent sensory deficit or motor deficit Routine Psychiatric Exam Psychiatric: Present normal affect Progress Note: A&P Assessment and plan (1) Endocarditis, suspected: Status: Acute (2) Echocardiogram abnormal: Status: Acute (3) Skin infection: Status: Acute (4) History of intravenous drug use: Status: Acute (5) Mood disorder: Status: Acute (6) Drug withdrawal: Status: Acute (7) Impetigo: Status: Acute Assessment and Plan Assessment and Plan for All Diagnoses:: Plan: 1. The patient has been admitted to the hospital due to an abnormal echocardiogram. There is a suspected, small sized, echodensity in the vicinity of the tricuspid valve concerning for infective endocarditis. Will plan to proceed with LILLY today for further evaluation for infective endocarditis. 2. The patient has been educated on the risks and benefits of proceeding with LILLY. The patient verbalizes understanding and is agreeable in proceeding with the procedure. 3. The patient will remain n.p.o. in preparation for LILLY. 4. She has been started on IV antibiotics for suspected infective endocarditis. 5. She does have a skin rash all over her face and is also on her arms consistent with impetigo. As mentioned above she has been started on IV antibiotics. She would benefit from a dermatology referral. She is refusing to put on the topical cream to help with this impetigo. 6. If the patient does have infective endocarditis she will need to be transferred to [facility] for further evaluation and treatment of her infective endocarditis and to be evaluated by ID. 7. Further recommendations will be made pending the patient's response to treatment and the results of her LILLY today. Thank you for the opportunity to help participate in the care of this patient. All recommendations and orders are per Dr. Westfall. Addendum: LILLY shows normal echo and no vegetation. No furhter recommendations at this time from a cardiac standpoint.
--- NOTE | 2024-11-03 11:57 | CA_ITS ---
APPROVED REPORT EXAM: Comprehensive 2D, Doppler, and color-flow Echocardiogram Supervisor Pastry: Vida Callahan RVT Ht: 5 ft 2 in Wt: 125lbs BSA: 1.57 BP: 139/70 mmHg Indications: Systemic rash, concern for endocarditis Procedure After obtaining informed consent, patient underwent transesophageal echo in the [facility]. Type of Sedation : MAC Sedation start time: 12:00 Case end Time: 12:12 Transesophageal probe was inserted and advanced into esophagus without difficulty by Dr. Souleymane Westfall. The LILLY was performed without complications. Throughout the procedure, the blood pressure, pulse oximetry, cardiac rhythm, and rate were monitored. The patient tolerated the procedure without adverse effects. Recovery from conscious sedation was uneventful and vital signs were stable. Left Ventricle The left ventricle is normal size. The left ventricular systolic function is normal. The left ventricular ejection fraction is within the normal range. There is normal left ventricular wall thickness. There is normal LV segmental wall motion. LVEF is 55%. Right Ventricle The right ventricle is normal size. The right ventricular systolic function is normal. Atria The left atrium size is normal. No thrombus is visualized in the left atrium or appendage. The right atrium size is normal. The interatrial septum is intact with no evidence for an atrial septal defect. Aortic Valve The aortic valve is normal in structure. The aortic valve is trileaflet. There is no aortic valvular stenosis. No aortic regurgitation is present. There is no aortic valvular vegetation. Mitral Valve The mitral valve is normal in structure. No evidence of mitral valve stenosis. There is no mitral valve regurgitation noted. There is no evidence of mitral valve vegetations. Tricuspid Valve Tricuspid valve is grossly normal in structure and function. Trace mild tricuspid regurgitation. RVSP is 8 mmHg plus RA pressure. There is no tricuspid valve vegetations. Pulmonic Valve The pulmonary valve is normal in structure. Trace pulmonic regurgitation. There is no pulmonic valve vegetations. Great Vessels The aortic root is normal in size. The ascending aorta is normal in size. Pericardium There is no pericardial effusion. Other Information Study Quality: Adequate Conclusion Normal biventricular systolic function. No significant valvular stenosis or regurgitation. No evidence of vegetations or mobile echodensities on LILLY. Of note, the previously visualized echodensity in the vicinity of the tricuspid valve visualized on TTE is an anatomic component of the tricuspid valve apparatus. The above findings were relayed to the inpatient cardiology consult service at the time of image acquisition prior to dictation of this report. Electronically signed by : Samina Westfall MD 11/07/2024 20:37:09
--- NOTE | 2024-11-03 12:17 | P.PNANES_ITS ---
[facility] Disclaimer: The information contained in this section may have been updated after the patient was seen, as this information can be updated by other users. Medical History Asthma Right bundle branch block Surgical History History of appendectomy Family History Sister Cancer Grandmother Cancer Other Diabetes Hypertension Social History Smoking Status: Current every day smoker tobacco type: cigarettes packs per da y: 1 smoking status stop date: 09/29/2023 second hand exposure: Yes alcohol intake: never substance use type: marijuana, crack/cocaine, opiates, IV drugs and methamphetamine current occupational status: other Travel in the last 8 weeks?: None caffeine: Yes [facility] Anesthesia Checklist Patient Identification Patient Identification: Arm Band and Verbal (Name & ) Structural Data Admitted From: Inpatient Planned Operative Procedure/s: LILLY Consent for Planned Operative Procedure(s) Verified: No Verified Documents: Surgical Consent and History and Physical NPO Status Verified Time NPO: 00:00 Additional verifications Patient : No Anesthesia Reactions: No Airway Assessment Mallampati Score:: Class II Neurological Assessment Level of Consciousness: Awake, Alert and Appropriate Hx Seizures: Yes Anesthesia Plan Anesthesia Risk discussed: Yes Anesthesia Plan: Verified ASA Class: III Anesthesia Type: MAC
[2024-11-03 12:18] LABS: Basophils % 0.3 % (0.1-2.0); Eosinophils % 1.1 % (0.1-12.0); Hematocrit 33.4 % (37.0-47.0); Immature Granulocytes # 0 10^3uL; Immature Granulocytes % 0 %; Lymphocytes # 1.3 K/mm3 (0.7-4.5); Lymphocytes % 37.5 % (10-50); Mean Corpuscular HGB Conc 34.7 g/dL (31.8-35.4); Mean Corpuscular Hemoglobin 30.9 pg (27.0-31.2); Mean Corpuscular Volume 89.1 fl (81-99); Monocytes # 0.2 K/mm3 (0.1-1.0); Monocytes % 4.8 % (1.7-9.3); Neutrophils % 56.3 % (37.0-80.0); Nucleated Red Blood Cells # 0 10^3/uL; Nucleated Red Blood Cells % 0 %; Platelet Count 230 K/mm3 (142-424); Red Blood Count 3.75 M/mm3 (4.20-5.40); Red Cell Distribution Width 12.3 % (11.5-17.5); Red Cell Distribution Width-SD 40.2 fL; White Blood Count 3.6 K/mm3 (4.8-10.8)
[2024-11-03 12:28] LABS: INR 1.03 (0.9-1.1); Prothrombin Time 11.4 seconds (10.1-12.5)
[2024-11-03 12:29] LABS: Hemoglobin 11.6 g/dL (12.2-16.2)
[2024-11-03 12:30] LABS: Albumin Level 3.7 g/dl (3.5-5.0)
[2024-11-03 12:31] LABS: Chloride 111 mmol/L (98-107); Potassium 3.8 mmoL/L (3.5-5.1); Sodium 140 mmol/L (136-145)
[2024-11-03 12:33] LABS: Alanine Aminotransferase 19 U/L (12-78); Albumin/Globulin Ratio 1.2 (1.1-1.8); Alkaline Phosphatase 56 U/L (38-126); Anion Gap 5.8 mEq/L (5-15); Aspartate Amino Transferase 23 U/L (14-36); Bilirubin,Total 0.4 mg/dl (0.2-1.3); Blood Urea Nitrogen 13 mg/dl (7-17); Carbon Dioxide 27 mmol/L (22.0-30.0); Cholesterol 128 mg/dl (140-200); Creatinine Clearance Estimated 116 mL/min (50-200); Estimated Glomerular Filt Rate 117 ml/min (>60); GFR (African American) 141 ML/MIN (>60); Total Protein,Serum 6.7 g/dl (6.3-8.2); Triglycerides 104 mg/dl (30-150); VLDL Cholesterol 21 mg/dL (0-40)
[2024-11-03 12:34] LABS: Calcium 8.2 mg/dl (8.4-10.2); Chol/HDL Ratio 4.6 (1-3.5); Glucose 90 mg/dl (74-100); HDL Cholesterol 28 mg/dl (40-60); Magnesium 1.8 mg/dl (1.6-2.3); Phosphorous 2.7 mg/dl (2.5-4.5)
[2024-11-03 12:50] LABS: Direct LDL Cholesterol 72.07 mg/dL (100-129)
--- NOTE | 2024-11-03 13:08 | P.DS_ITS ---
<Statement entered by Angel Martinez MD - 11/03/24 14:03> Rounded on patient after nurse practitioner. Personally examined and interviewed patient. Agree with exam findings and care plan as documented. General Admission date:: 11/02/24 HPI HPI HPI: Ms. Valencia is a 29-year-old female who presented to the emergency department yesterday for evaluation of a rash that was on her face, arms, torso, legs. Patient states that she currently uses methamphetamines, and cocaine. Last known drug use was 2 days ago. She states that she snorts, smokes, or uses IV drugs. She is currently on parole, and her p.o. plans to send her to rehab next month. During assessment in the emergency room she denies shortness of breath, chest pain, edema. Lab work, and echo, blood cultures were all obtained. Echo showed potential for endocarditis, and it was advised to the patient that she needed a LILLY for further evaluation. Patient stated she was unable to stay for admission and was given Dalvance and 2 g of ceftriaxone for empiric treatment of the presumed endocarditis, and left AMA. Today patient presented again to the emergency room with worsening concern for rash and stated she was concerned about her heart infection . Hospital Course Hospital Course Hospital Course: Ms. Lamar is a 29-year-old female admitted to the hospital for IV antibiotics, and cardiology consult with LILLY procedure for suspected endocarditis. She is a current IV drug user of methametamines and cocaine. Peers support contacted for further management and resources. Hospital medicine agreed to admit for further management. #Endocarditis, suspected #Intravenous drug use #Skin infection #Echocardiogram abnormal ?Assessment of patient reveals scattered skin lesions with scabs and crusts, on patient's face, neck, arms, chest, legs, back. Patient states the rash started on Friday morning and her face began swelling. Rash is very itchy and is spreading rapidly. She does state that the antibiotics given to her yesterday in the emergency room she thinks helped. Patient being discharged with Bactrim DS x 7 days and mupirocin ointment for suspected impetigo. ? Patient states she has plans to go to rehab at the beginning of next month. ?Echocardiogram on 11/01 showed suspected tricuspid valve echodensity. EF 55%. ?Patient had LILLY this morning, no abnormalities noted. ?Patient's lab work this morning is unremarkable, Patient potassium yesterday was 3.1, orally replaced potassium today is 3.8. #Mood disorder #Drug withdrawal ? Patient should continue home medications Vraylar 3 mg daily, vitamin D weekly, and clonidine 0.1 mg daily. Exam Data for Last 24 hours Vital signs and Labs for Last 24 Hours: Temp Pulse Resp BP Pulse Ox O2 Del Method 98.1 F 84 16 103/55 L 96 Room Air 11/03/24 12:30 11/03/24 12:30 11/03/24 12:30 11/03/24 12:30 11/03/24 12:30 11/03/24 12:30 Laboratory Results - last 24 hr 11/02/24 12:57: WBC 5.9 D, RBC 4.28, Hgb 13.3, Hct 38.0, MCV 88.8, MCH 31.1, MCHC 35.0, RDW 12.4, Plt Count 269, MPV 8.7, Neut % (Auto) 68.9, Lymph % (Auto) 22.4, [place] % (Auto) 6.6, Eos % (Auto) 1.5, Baso % (Auto) 0.3, Neut # (Auto) 4.1, Lymph # (Auto) 1.3, [place] # (Auto) 0.4, Eos # (Auto) 0.1, Baso # (Auto) 0.0, Sodium 140, Potassium 3.1 L D, Chloride 104, Carbon Dioxide 27, Anion Gap 12.1, BUN 10 D, Creatinine 0.70, Estimated Creat Clear 104, Estimated GFR 98, Est GFR ( Amer) 118, Glucose 98, Calcium 9.4, Total Bilirubin 0.6, AST 31 D, ALT 26, Alkaline Phosphatase 63, Total Protein 8.6 H, Albumin 4.9, Globulin 3.7 H, Albumin/Globulin Ratio 1.3, Serum HCG, Qual Negative 11/03/24 11:49: WBC 3.6 L D, RBC 3.75 L, Hgb 11.6 L D, Hct 33.4 L, MCV 89.1, MCH 30.9, MCHC 34.7, RDW 12.3, Plt Count 230, MPV 9.0, Neut % (Auto) 56.3, Lymph % (Auto) 37.5, [place] % (Auto) 4.8, Eos % (Auto) 1.1, Baso % (Auto) 0.3, Neut # (Auto) 2.0, Lymph # (Auto) 1.3, [place] # (Auto) 0.2, Eos # (Auto) 0.0, Baso # (Auto) 0.0, PT 11.4, INR 1.03, Sodium 140, Potassium 3.8 D, Chloride 111 H, Carbon Dioxide 27, Anion Gap 5.8, BUN 13 D, Creatinine 0.60, Estimated Creat Clear 116, Estimated GFR 117, Est GFR ( Amer) 141, Glucose 90, Calcium 8.2 L, Phosphorus 2.7, Magnesium 1.8, Total Bilirubin 0.4, AST 23 D, ALT 19 D, Alkaline Phosphatase 56, Total Protein 6.7, Albumin 3.7 D, Globulin 3.0, Albumin/Globulin Ratio 1.2, Triglycerides 104, Cholesterol 128 L, LDL Cholesterol Direct 72.07 L, VLDL Cholesterol 21, HDL Cholesterol 28 L, Cholesterol/HDL Ratio 4.6 H I & O for Last 24 hours: Intake & Output 10/31/24 11/01/24 11/02/24 11/03/24 23:59 23:59 23:59 23:59 Intake Total 600 / 950 600 / 600 Output Total 0 / 200 200 / 200 Balance 600 / 750 400 / 400 Weight 52.163 kg 54.204 kg Constitutional Constitutional: no acute distress and disheveled *Routine HEENT Exam Head: Present normocephalic Eye: Present PERRL *Routine Neck Exam Neck: Present full ROM and swelling Routine Chest/Breast/Axilla Exam Breast: Present rashes and scars Axillae: Present rashes *Routine Respiratory Exam Respiratory: Present CTA bilaterally and normal respiratory effort *Routine Cardiovascular Exam Cardiovascular: Present RRR *Routine Abdominal Exam Abdominal: Present soft and normoactive bowel sounds; Absent tenderness *Routine Skin Exam Skin: Present lesions Comments: Scattered scabbing/rash *Routine Neurological Exam Neurological: Present alert and oriented X3 Results Data Completed and Pending Labs on day of discharge: Labs from last 24 hours 11/03/24 11/02/24 11:49 12:57 WBC 3.6 L D 5.9 D RBC 3.75 L 4.28 Hgb 11.6 L D 13.3 Hct 33.4 L 38.0 MCV 89.1 88.8 MCH 30.9 31.1 MCHC 34.7 35.0 RDW 12.3 12.4 Plt Count 230 269 MPV 9.0 8.7 Neut % (Auto) 56.3 68.9 Lymph % (Auto) 37.5 22.4 [place] % (Auto) 4.8 6.6 Eos % (Auto) 1.1 1.5 Baso % (Auto) 0.3 0.3 Neut # (Auto) 2.0 4.1 Lymph # (Auto) 1.3 1.3 [place] # (Auto) 0.2 0.4 Eos # (Auto) 0.0 0.1 Baso # (Auto) 0.0 0.0 PT 11.4 INR 1.03 Sodium 140 140 Potassium 3.8 D 3.1 L D Chloride 111 H 104 Carbon Dioxide 27 27 Anion Gap 5.8 12.1 BUN 13 D 10 D Creatinine 0.60 0.70 Estimated Creat Clear 116 104 Estimated GFR 117 98 Est GFR ( Amer) 141 118 Glucose 90 98 Calcium 8.2 L 9.4 Phosphorus 2.7 Magnesium 1.8 Total Bilirubin 0.4 0.6 AST 23 D 31 D ALT 19 D 26 Alkaline Phosphatase 56 63 Total Protein 6.7 8.6 H Albumin 3.7 D 4.9 Globulin 3.0 3.7 H Albumin/Globulin Ratio 1.2 1.3 Triglycerides 104 Cholesterol 128 L LDL Cholesterol Direct 72.07 L VLDL Cholesterol 21 HDL Cholesterol 28 L Cholesterol/HDL Ratio 4.6 H Serum HCG, Qual Negative DS: Diagnosis Discharge Diagnosis (1) Endocarditis, suspected: Status: Acute Code(s): R09.89 - Other specified symptoms and signs involving the circulatory and respiratory systems (2) Echocardiogram abnormal: Status: Acute Code(s): R93.1 - Abnormal findings on diagnostic imaging of heart and coronary circulation (3) Skin infection: Status: Acute Code(s): L08.9 - Local infection of the skin and subcutaneous tissue, unspecified (4) History of intravenous drug use: Status: Acute Code(s): Z87.898 - Personal history of other specified conditions (5) Mood disorder: Status: Acute Code(s): F39 - Unspecified mood [affective] disorder (6) Drug withdrawal: Status: Acute Code(s): F19.939 - Other psychoactive substance use, unspecified with withdrawal, unspecified (7) Impetigo: Status: Acute Code(s): L01.00 - Impetigo, unspecified Meds Home Medications and Allergies Home Medications ?Medication ?Instructions ?Recorded ?Confirmed ?Type cariprazine 3 mg capsule (Vraylar) 3 mg PO DAILY 11/0111/02/24 History clonidine HCl 0.1 mg tablet 0.1 mg PO DAILY 11/01/24 0 11/02/24 History ergocalciferol (vitamin D2) 1,250 1,250 mcg PO WEEKLY 11/01/24 11/03/24 History mcg (50,000 unit) capsule (Vitamin D2) mupirocin 2 % topical ointment 1 applic topical QID 7 days #1 g 11/03/24 Rx sulfamethoxazole 800 1 tab PO BID #14 tabs Rx mg-trimethoprim 160 mg tablet (Bactrim DS) New Prescriptions to Start Prescriptions: Clarissa Parrish sulfamethoxazole-trimethoprim [Bactrim DS] Clarissa Rashid Allergies Allergy/AdvReac Type Severity Reaction Status Date / Time codeine (CODEINE) Allergy Severe Anaphylaxis Verified 11/01/24 10:13 doxycycline (DOXYCYCLINE) Allergy Severe Anaphylaxis Verified 11/01/24 10:13 hyoscyamine (From Levsin) Allergy Severe Joint Pain Verified 11/01/24 10:13 penicillin G (PENICILLIN G) Allergy Severe Anaphylaxis Verified 11/01/24 10:13 aspirin (ASPIRIN) Allergy Mild Rash Verified 11/01/24 10:13 Discharge Plan Disposition Patient Disposition: Home, Self-Care Condition: Fair Follow up Plan Follow up with: Souleymane Westfall MD [Staff Physician, Cardiology] - Enter time for follow up Prescriptions/Medication Reconciliation: New mupirocin 2 % Ointment 1 applic topical QID 7 Days Qty: 1 1RF sulfamethoxazole-trimethoprim [Bactrim DS] 800-160 mg tablet 1 tab PO BID Qty: 14 0RF Continued clonidine HCl 0.1 mg tablet 0.1 mg PO DAILY ergocalciferol (vitamin D2) [Vitamin D2] 1,250 mcg (50,000 unit) capsule 1,250 mcg PO WEEKLY Vraylar 3 mg capsule 3 mg PO DAILY Patient Comments: TAKE 1 CAPSULE BY MOUTH ONCE DAILY Problem Reconciliation Problems Reviewed?: Yes Patient Discharge Instructions ACTIVITY: Continue current activity DIET: continue same diet Patient Instructions: Transesophageal Echocardiography, DI for Infective Endocarditis, DI for Impetigo, DI for Rash Print Language: Niuean Providers Primary Care Provider: Provider,Referral Admit Provider: Angel Martinez Attending Provider: Angel Martinez
[2024-11-03 13:11] LABS: Thyroid Stimulating Hormone 0.51 uIU/mL (0.465-4.68)
[2024-11-03] MEDS: CEFTRIAXONE SODIUM 2 GM in 0.9 % SODIUM CHLORIDE 100 ML IV (13:45)
--- NOTE | 2024-11-03 15:25 | PEERSUPPORT ---
Peer Support Note Patient Information Patient Information: DOS: 11/03/2024 Ps spoke with patient via phone call. Pt stated she had just been discharged from the hospital, still feeling drowsy from procedure at [facility]. 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 Pt plans to return to [facility] in [place], [place] for her vivitrol injection. Ps and pt discusses a safety plan: Mindful of high risk to overdose consequences Follow up appointment with [facility] Connection to social supports for her recovery Contact Bridge Peer support- contact information provided Ps stated she is due to be in court for her legal issues and then reporting to inpatient treatment on November 22, 2024. Pt receptive to ps and agreeing to follow up supportive phone calls. Ps will follow up with pt on 11/04/2024.
== END 2024-11-03 14:35 | disposition home or self-care (01) ==
LOC: ER 13:36 → 2ND 13:47
PROVIDERS: Internal Medicine; Physician Assistant; Admitting Provider Internal Medicine Adolescent Medicine; Emergency Provider Emergency Medicine; Visit Provider Internal Medicine Adolescent Medicine
PROC: (CPT 93312; principal; 2024-11-03 11:00)
DX: R93.1 Abnormal findings on diagnostic imaging of heart and coronary circulation (principal); F19.939 Other psychoactive substance use, unspecified with withdrawal, unspecified; L08.9 Local infection of the skin and subcutaneous tissue, unspecified; F32.9 Major depressive disorder, single episode, unspecified; F17.210 Nicotine dependence, cigarettes, uncomplicated; Z79.899 Other long term (current) drug therapy; Z88.5 Allergy status to narcotic agent; Z88.0 Allergy status to penicillin; Z88.8 Allergy status to other drugs, medicaments and biological substances
CPT/HCPCS: 96365; 96366; 96376 ×2; 80053; 80061; 83735; 84100; 84443; 84703; 85025; 85610; 93270; 93312; 93319; G0378; J0696; J1650; J2003; J2250; J2704; J3370; J7050

== ENCOUNTER 2024-11-24 08:37 | Emergency (ER) | payer MEDICAID, SELFPAY ==
[2024-11-24 08:47] VITALS: BP 120/84; PULSE 97; RESP 15; TEMP 36.8; O2SAT 99; BMI 20.5
--- OUTSIDE RECORDS SUMMARY | 2024-11-24 08:47 | XMS_ITS | Clinical Summary ---
Author Organization Healthcare Address [address] [place] [address] Care Team Providers Care Catalyst Recovery Operator Name Role Phone Yeimi Cortés Unavailable Unavailable [...] contact the research coordinator when admitted at [phone]. The patient will need a pink tube [...] completely dilated or going to OR at [phone]. care, unspecified trimester 09/30/2023 Rubella non-immune status, [...] place to sleep or slept in a group home (including now)? No 09/17/2023 [place] Depression Scale Answer Date Recorded [place] Depression Scale Total 10 01/28/2024 The thought [...] drink first t edel in the morning ([employer]) to steady your nerves or to get [...] of 3 - 19+ 3-dose series) 2012 [id number] Vaccine ( season) 2024 08/16/2021, 08/22/2020, 07/20/2020 [facility]-Varicella Vaccines (1 of 2 - 13+ 2-dose series) 02/10/2024 [facility]-Pap Smear 07/10/2024 07/10/2021 [facility]-Influenza Vaccine (#1) 01/17/202505/02, 07/10/2021, 06/06/2011, Additional history exists [facility]-Depression Screening [...] Reactive Non Reactive 12/24/2023 12:18 PM EDT [facility] Comment:Screening for HIV 1 & 2 antibodies, and P24 antigen is NONREACTIVE. No confirmatory testing is required. Blood Venous blood specimen / Unknown Venipuncture / Unknown 12/24/2023 9:26 AM EDT 12/24/2023 9:31 AM EDT Sulema Abdalla MD LAB BLOOD ORDERABLES Final Re sult [facility] [address] [place] [address] * (ABNORMAL) Pap Test (07/10/2021 12:05 PM EST) Case Report Cytology Case: [id number] Authorizing Provider: Monica Sánchez CNM Collected: 07/10/2021 1205 Ordering Location: [facility] Received: 07/11/2021 0829 First Screen: Bryce Miller, CT Pathologist: Savannah Tovar MD Specimen: ThinPrep Pap Test, Liquid-Based Cervical/Vaginal, CERVICAL/VAGINAL 07/16/2021 9:24 AM EST [facility] Interpretation LOW GRADE SQUAMOUS INTRAEPITHELIAL LESION (LSIL)(A) 07/16/2021 9:24 AM EST [facility] at 0924 EST Specimen Adequacy Satisfactory for evaluation; endocervical/gaines sformation zone component present. Slide scanned and imaged by ThinPrep Imaging System with manual review of all selected durand. 07/16/2021 9:24 AM EST [facility] Cervical cytology is a [...] results is suggested (please call Microbiology at [phone] for results). 07/16/2021 9:24 AM EST [facility] Menstrual Status Unknown 07/16/19 [...] ORDERAB LES Final Result [facility] [address] [place] [address] from Last 3 Months or Most Recently [...] Patient has decision-making capacity? Yes Care Teams Catalyst Recovery Operator Relationship Specialty Start Date End Date Pcp, No [address] [place] [address] PCP - General Family Medicine 01/10/23 Yeimi Cortés Registered Nurse Obstetrics and Gynecology 11/18/23 Xenia Henrandez Community Health Worker 09/25/23 5 Columba Melendez, RN [facility] Registered Nurse Maternal and Medicine 12/16/23 04/07/25
--- NOTE | 2024-11-24 08:49 | ED_ITS ---
Discharge Plan Disposition Patient Disposition: Home, Self-Care Prescriptions Prescriptions: New linezolid [Zyvox] 600 mg tablet 600 mg PO BID 14 Days Qty: 28 0RF Rx Instructions: skin infection refractory to bactrim No Action clonidine HCl 0.1 mg tablet 0.1 mg PO DAILY ergocalciferol (vitamin D2) [Vitamin D2] 1,250 mcg (50,000 unit) capsule 1,250 mcg PO WEEKLY Vraylar 3 mg capsule 3 mg PO DAILY Patient Comments: TAKE 1 CAPSULE BY MOUTH ONCE DAILY mupirocin 2 % Ointment 1 applic topical QID 7 Days Qty: 1 1RF sulfamethoxazole-trimethoprim [Bactrim DS] 800-160 mg tablet 1 tab PO BID Qty: 14 0RF Referrals Follow up/Referrals: Patito Gutierrez [Primary Care Provider, Medical] - See instructions Activity Restrictions/Add. Instructions Additional Instructions/Restrictions: At this time it was felt you are safe to be discharged home. If new or worsening symptoms please do not hesitate to return the emergency department. Please take your medications as prescribed and as discussed you must stop illicit substance abuse or the sores will never get better. Clinical Impressions Clinical Impression: Bacterial skin infection Instructions Patient Instructions: DI for Skin Abscess Print Language Print Language: Azeri Discharge ED Provider: Derik Choi General Adult HPI General Chief complaint: Skin/Abscess/Foreign Body Stated complaint: impetigo- continued Time Seen by Provider: 11/24/24 08:40 History of Present Illness HPI narrative: Patient is a 29-year-old female with past medical history of substance abuse disorder including injection drug use who presents emergency department for evaluation of diffuse skin sores. I have seen this patient previously and she was admitted to rule out endocarditis. Fortunately echodensity on transthoracic echo was confirmed to be anatomic variant on transesophageal echo and I review her blood cultures from 11/01 which had no growth after 5 days multiple sets. She has had persistent sores last use of drugs 2 weeks ago, some of which are excoriated. No new complaints at this time other than her skin lesions. Please note that above description of symptoms, in this electronic medical record under categorization of recalled from ER triage doctor by RN are reflective of an initial nursing assessment, however, is not reflective of my full history and physical exam that was personally taken and clarified. Consequentially, this preceding description of symptoms, which may include the patient's categorized chief complaint in the EMR, do not reflect my personal clinical impression, and the ultimate description of history of present illness and patient stated complaints should be deferred to this section of the note. Unless stated otherwise or congruent with this section of the note, additional signs, symptoms, or incongruence should be interpreted as inaccurate with my clinical impression. Related Data Home Medications ?Medication ?Instructions ?Recorded ?Confirmed cariprazine 3 mg capsule (Vraylar) 3 mg PO DAILY 11/0111/17/24 clonidine HCl 0.1 mg tablet 0.1 mg PO DAILY 11/01/24 0 11/17/24 ergocalciferol (vitamin D2) 1,250 1,250 mcg PO WEEKLY 11/01/24 11/17/24 mcg (50,000 unit) capsule (Vitamin D2) Previous Rx's ?Medication ?Instructions ?Recorded mupirocin 2 % topical ointment 1 applic topical QID 7 days #1 g 11/03/24 sulfamethoxazole 800 1 tab PO BID #14 tabs mg-trimethoprim 160 mg tablet (Bactrim DS) linezolid 600 mg tablet (Zyvox) 600 mg PO BID skin inf ection 14 11/24/24 days #28 tabs Allergies Allergy/AdvReac Type Severity Reaction Status Date / Time codeine (CODEINE) Allergy Severe Anaphylaxis Verified 11/17/24 14:12 doxycycline (DOXYCYCLINE) Allergy Severe Anaphylaxis Verified 11/17/24 14:12 hyoscyamine (From Levsin) Allergy Severe Joint Pain Verified 11/17/24 14:12 penicillin G (PENICILLIN G) Allergy Severe Anaphylaxis Verified 11/17/24 14:12 aspirin (ASPIRIN) Allergy Mild Rash Verified 11/17/24 14:12 [facility] Disclaimer: The information contained in this section may have been updated after the patient was seen, as this information can be updated by other users. Medical History Endocarditis, suspected Asymptomatic bacteriuria Asthma exacerbation Vaginal bleeding Seizure-like activity Suspected COVID-19 virus infection Low back pain Viral upper respiratory illness Constipation First trimester Flank pain, acute Asthma Right bundle branch block Surgical History History of appendectomy Family History Sister Cancer Ovarian Grandmother Cancer OVARIAN Other Diabetes Hypertension Social History Smoking Status: Current every day smoker tobacco type: cigarettes packs per day: 1 smoking status stop date: 09/29/2023 second hand exposure: Yes alcohol intake: never substance use type: marijuana, crack/cocaine, opiates, IV drugs and methamphetamine current occupational status: other Travel in the last 8 weeks?: None caffeine: Yes Have you lived/traveled outside [place] in past 30 days?: No Contact w/someone who lives/traveled outside [place] past 30 days?: No Exposure to someone with infectious disease in past 14 days?: No Do you have a fever (greater than 100.4 F or 38 C)?: No Have you tested positive for COVID-19?: No Exposed to someone with COVID-19 in past 14 days?: No Do you have a sore throat?: No Do you have a cough?: No Do you have any weakness?: No Do you have any diarrhea?: No Are you experiencing any unusual bleeding?: No Do you have any muscle aches/pain?: No Do you have any abdominal pain?: No Are you experiencing loss of taste or smell?: No Other Medical History Have you received the Flu Vaccine for this season: No Have you received the Pneumonia Vaccine: No ROS Obtained: Yes Systems reviewed as appropriate & no additional complaints except as documented Physical Exam General General appearance: alert and in no apparent distress Head Head exam: atraumatic and normocephalic Eye Eye exam: Present PERRL and EOMI ENT ENT exam: Present mucous membranes moist Neck Neck exam: Present normal inspection Chest Chest inspection: Present normal inspection and symmetric chest wall rise Respiratory Respiratory exam: Absent respiratory distress Cardiovascular Cardiovascular exam: Present regular rate and normal rhythm Abdominal Exam Abdominal exam: Present soft Neurological Exam Neurological exam: Present alert and CN II-XII intact Psychiatric Psychiatric exam: Present normal affect Skin Skin exam: Present warm, dry and other (Scattered subcentimeter circular lesions some of which are excoriated and weeping some of which are scabbed over with a small erythematous surrounding base on the bilateral upper extremities right lower extremity, face, posterior neck.) Medical Decision Making Medical Records Screening: Per USPSTF and CDC recommendations, given the prevalence of disease in our [facility], it is our hospital?s policy to screen for HIV and viral Hepatitis for all patients aged 18 and over and those with ongoing risk factors. Moncho Inquiry Pt receiving controlled substance: No Vital Signs: 11/24/24 08:47 Temperature 98.3 F Temperature Source Oral Pulse Rate [Right Radial] 97 H Respiratory Rate 15 Blood Pressure [Right Arm] 120/84 Blood Pressure Mean [Right Arm] 96 Blood Pressure Source [Right Arm] Automatic Cuff Blood Pressure Position [Right Arm] Sitting 02 Sat by Pulse Oximetry 99 Oxygen Delivery Method Room Air Orders (Tests/Meds): ORDERS Category Date Time Status Consult Caster Helper [CONS] Routine Cons 11/24/24 08:49 Active Medical Decision Narrative: In summary patient is a 29-year-old female with past medical history described above who presents emergency department for evaluation of diffuse skin sores in the setting of previous injection drug use. Patient is hemodynamically stable nontoxic-appearing upon arrival, afebrile, no tachycardia. She has no complaints other than her skin which is refractory to Bactrim outpatient. She still has some evidence of excoriation. Unfortunately she is in drug court and states that she cannot go to any rehabilitation unless they approve as she frequently has to visit drug court. Dalbavancin was considered but cost will be prohibitive given her insurance carrier. Given this patient will be covered with Zyvox appropriately for MRSA coverage in an escalating fashion given that she failed Bactrim. She is otherwise hemodynamically stable does not appear septic to me and endocarditis has been ruled out previously and with no additional complaints workup with labs and imaging was considered but will be deferred at this time. Pharmacy was contacted for prior authorization which they will work on for her Zyvox and patient was discharged in stable condition was given return precautions. Transformer Shop Supervisor disclaimer Much of this encounter note is an electronic nibbler operator spoken language to printed text. Electronic nibbler operator of the spoken language may permit errors. Although I have reviewed the note, some errors may still exist. Critical Care Critical Care Time Critical Care Time: No
[2024-11-24 09:50] VITALS: BP 135/86; PULSE 75; RESP 15; TEMP 36.8; O2SAT 99
--- NOTE | 2024-11-30 11:25 | PEERSUPPORT ---
Peer Support Note Patient Information Patient Information: DOS: 11/26/2024 Pt stated she is seeing some improvement with her skin rash by taking medications from Derik Mauro at [facility]. She has contacted [facility] [facility] for inpatient treatment as referred by ps. She is able to take her daughter with her to receive treatment for her substance use disorder. She is reporting to [facility] on 11/28/2024. She denies any use of meth, however her has returned to using. Pt stated she is feeling manic from the stress and anxiousness trying to pack her things to go to rehab but knows it will be better once she gets there with her daughter so she can get well. Ps discussed safe coping skills that work for pt: -Journal -Writing list -Breathing exercises -Self-awareness Plan of action: -Pt reporting to [facility] on 11/28/2024
== END 2024-11-24 10:01 | disposition home or self-care (01) ==
PROVIDERS: Emergency Provider Emergency Medicine; PCP Nurse Practitioner Family
DX: L08.9 Local infection of the skin and subcutaneous tissue, unspecified (principal); F17.210 Nicotine dependence, cigarettes, uncomplicated; F19.11 Other psychoactive substance abuse, in remission
CPT/HCPCS: 99283